=== PATIENT | male | born 1970 | race American Indian/Alaskan Native ===

== ENCOUNTER 2017-12-19 06:39 | Inpatient (IN) | payer OTHER ==
[2017-12-19 07:36] LABS: Basophils % (Auto) 0.4 % (0.0-1.8); Eosinophils % (Auto) 0.3 % (0.0-4.3); Hematocrit 29.1 % (35.5-45.6); Lymphocytes # (Auto) 0.9 K/mm3 (1.2-5.4); Lymphocytes % (Auto) 10.8 % (13.4-35.0); Mean Corpuscular HGB Conc 34 % (32-34); Mean Corpuscular Hemoglobin 31 pg (28-32); Mean Corpuscular Volume 89 fl (84-94); Monocytes # (Auto) 0.7 K/mm3 (0.0-0.8); Monocytes % (Auto) 8.2 % (0.0-7.3); Platelet Count 135 K/mm3 (140-440); Red Blood Count 3.25 M/mm3 (3.65-5.03); Red Cell Distribution Width 14.3 % (13.2-15.2)
[2017-12-19 07:50] LABS: Albumin 3.7 g/dL (3.9-5); Calcium 8.1 mg/dL (8.4-10.2)
--- NOTE | 2017-12-19 09:02 | XRay Report ---
AP CHEST: HISTORY: chest pain AP view of the chest demonstrates a normal mediastinal and cardiac contour with clear lungs and normal bony and soft tissue structures. IMPRESSION: Unremarkable AP chest.
--- NOTE | 2017-12-19 09:03 | Consultation ---
History of Present Illness - Reason for Consult Consult date: 12/19/17 end stage renal disease, accelerated hypertension, other (Peritonitis) - History of Present Illness The patient is a 47 YO AAM with history significant for ESRD on APD, Anemia 2/2 Renal disease, Accelerated hypertension, Secondary hyperparathyroidism, Anxiety and Panic attacks, who is well known to our service, was sent to ER for for further evaluation of abd pain and possible Peritonitis. Patient presented to our office yesterday with 2-3 days h/o severe diffuse abdominal pain, which was squeezing in nature, constant, aggravated by any movements and eating. He vomited once about 2 days ago and couldn't do PD for about 2 days due to pain. Associated symptoms poor PO intake, malaise, weight loss, pain on urination and subjective fever. Today his symptoms are about the same. Past History Past Medical History: anemia, dialysis, ESRD, hypertension Medications and Allergies Allergies Allergy/AdvReac Type Severity Reaction Status Date / Time No Known Allergies Allergy Unverified 12/19/17 07:20 Home Medications Medication Instructions Recorded Confirmed Last Taken Type Clonidine HCl [Catapres] 0.3 mg PO TID 12/19/17 12/19/17 12/19/17 History Cyclobenzaprine [Flexeril 10 MG 1 tab PO BID PRN 12/19/17 12/19/17 12/19/17 History TAB] Doxazosin Mesylate 8 mg PO HS 12/19/17 12/19/17 12/19/17 History Furosemide [Lasix] 1 tab PO DAILY 12/19/17 12/19/17 12/19/17 History Losartan [Cozaar] 100 mg PO QDAY 12/19/17 12/19/17 12/19/17 History Review of Systems Constitutional: weight loss, fever, anorexia, fatigue, weakness, malaise, poor appetite, no weight gain, no chills, no chronic pain Ears, nose, mouth and throat: epistaxis Cardiovascular: chest pain, no orthopnea, no lightheadedness, no shortness of breath Respiratory: no cough, no hemoptysis, no shortness of breath, no dyspnea on exertion, no sleep apnea Gastrointestinal: abdominal pain, nausea, vomiting, constipation, no diarrhea, no hematemesis, no melena Genitourinary Male: no dysuria, no hematuria Rectal: no pain, no bleeding Musculoskeletal: no redness of joints, no hot joints Integumentary: no rash, no redness, no sores, no wounds Neurological: no paralysis, no seizures, no syncope, no change in mentation Psychiatric: anxiety, change in appetite, anxiety attacks, no memory loss, no confusion Hematologic/Lymphatic: no easy bleeding Allergic/Immunologic: no anaphylaxis Exam - Vital Signs Vital signs: Vital Signs Temp Pulse Resp BP Pulse Ox 98.3 F 100 H 16 266/165 99 12/19/17 07:20 12/19/17 07:20 12/19/17 07:20 12/19/17 07:20 12/19/17 07:20 - General Appearance General appearance: well-developed, appears stated age, chronically ill, frail, other (no distress) EENT: ATNC, PERRL, mucous membranes dry, hearing intact, vision intact Neck: Present: neck supple, trachea midline Respiratory: Clear to Ascultation Heart: regular, S1S2, no murmurs Gastrointestinal: Present: normoactive bowel sounds, tenderness, other (PEG tube noted). Absent: distended, masses Integumentary: no rash, warm and dry Neurologic: no focal deficit, alert and oriented x3 Musculoskeletal: Present: other (no edema) Psychiatric: mood/affect appropriate, cooperative Results - Lab Results 12/19/17 07:28 12/19/17 08:41 Most recent lab results Calcium 8.1 mg/dL (8.4-10.2) L 12/19/17 07:28 Assessment and Plan 1. Peritonitis: Symptoms and signs very suggestive of Peritonitis. Peritoneal fluid cell count and culture ordered. Will start on Vancomycin and Ceftriaxone for broad spectrum coverage. Await culture results. 2. ESRD: PD with 1.5% solution 4 times a day, manual exchanges. Monitor lytes. 3. Uncontrolled HTN: Resume home meds. Prn IV Hydralazine. 4. Anemia: Monitor. 5. Anxiety: Prn Xanax.
[2017-12-19] MEDS ORDERED: XANAX PO PRN (09:10)
[2017-12-19 09:13] LABS: Albumin 3.6 g/dL (3.9-5)
[2017-12-19] MEDS ORDERED: ROCEPHIN 1,000 MG in NACL 0.9% 50 ML IV ONE (09:17)
[2017-12-19 09:19] LABS: Calcium 7.6 mg/dL (8.4-10.2)
[2017-12-19 09:38] LABS: Lipase 22 units/L (13-60)
--- NOTE | 2017-12-19 09:40 | History and Physical Report ---
History of Present Illness Date of examination: 12/19/17 Date of admission: 12/19/17 Chief complaint: Abdominal pain poor oral intake and not feeling well for the last 3 days History of present illness: very Pleasant 47-year-old -[place] male patient with significant past medical history of hypertension and anxiety disorder end-stage renal disease on peritoneal dialysis, anemia secondary to end-stage renal disease, presented to the emergency room with abdominal pain off to discharge patient., Patient has not been feeling well, denies any fever, evaluated by drone operator Patient is being admitted for further management of peritonitis. Patient denies nausea vomiting Denies headache dizziness Denies chest pain or shortness of breath Past History Past Medical History: ESRD, hypertension Past Surgical History: Other (peritoneal dialysis) Social history: lives with family, full code. denies: smoking, alcohol abuse Family history: hypertension Medications and Allergies Allergies Allergy/AdvReac Type Severity Reaction Status Date / Time No Known Allergies Allergy Unverified 12/19/17 07:20 Home Medications Medication Instructions Recorded Confirmed Last Taken Type Clonidine HCl [Catapres] 0.3 mg PO TID 12/19/17 12/19/17 12/19/17 History Cyclobenzaprine [Flexeril 10 MG 1 tab PO BID PRN 12/19/17 12/19/17 12/19/17 History TAB] Doxazosin Mesylate 8 mg PO HS 12/19/17 12/19/17 12/19/17 History Furosemide [Lasix] 1 tab PO DAILY 12/19/17 12/19/17 12/19/17 History Losartan [Cozaar] 100 mg PO QDAY 12/19/17 12/19/17 12/19/17 History Active Meds: Active Medications Alprazolam (Xanax) 0.25 mg PO TID PRN PRN Reason: Anxiety Clonidine HCl (Catapres) 0.3 mg PO TID FERNANDO Doxazosin Mesylate (Cardura) 8 mg PO HS [facility] Ceftriaxone Sodium 1,000 mg/ (Sodium Chloride) 50 mls @ 100 mls/hr IV ONCE ONE PRN Reason: Protocol Stop: 12/19/17 09:46 Losartan Potassium (Cozaar) 100 mg PO DAILY FERNANDO Minoxidil (Loniten) 5 mg PO DAILY FERNANDO Oxycodone/Acetaminophen (Percocet 5/325) 2 tab PO Q6H PRN PRN Reason: Pain, Moderate (4-6) Peritoneal Dialysis Solution (Dianeal Low Calcium W/1.5% Dextrose) 2,000 ml IP 4XD FERNANDO Vancomycin HCl (Vancomycin Pharmacy To Dose) 1 each IV PKCONSULT FERNANDO PRN Reason: Protocol Review of Systems Constitutional: anorexia, fatigue, no weight loss, no weight gain Ears, nose, mouth and throat: no nasal congestion, no nasal discharge Cardiovascular: lightheadedness, no chest pain, no shortness of breath Respiratory: no cough with sputum, no hemoptysis Gastrointestinal: abdominal pain, nausea, no vomiting Genitourinary Male: no flank pain Musculoskeletal: no myalgias, no arthritis Integumentary: no rash, no lesions Neurological: no paralysis, no weakness Psychiatric: no anxiety, no depression Endocrine: no cold intolerance, no heat intolerance, no polydipsia, no polyuria Hematologic/Lymphatic: no easy bruising, no easy bleeding Allergic/Immunologic: no urticaria, no allergic rhinitis Exam - Constitutional Vitals: Temp Pulse Resp BP Pulse Ox 98.3 F 89 24 235/157 100 12/19/17 07:20 12/19/17 08:16 12/19/17 08:16 12/19/17 08:16 12/19/17 08:16 General appearance: Present: no acute distress, well-nourished - EENT Eyes: Present: PERRL, EOM intact - Neck Neck: Present: supple, normal ROM - Respiratory Respiratory effort: normal Respiratory: negative: rales, rhonchi, wheezing - Cardiovascular Rhythm: regular Heart Sounds: Present: S1 & S2 - Extremities Extremities: no ischemia, No edema - Abdominal General gastrointestinal: Present: soft, tender (no guarding no rigidity), normal bowel sounds - Integumentary Integumentary: Present: clear, warm - Musculoskeletal Musculoskeletal: strength equal bilaterally - Psychiatric Psychiatric: appropriate mood/affect, cooperative - Neurologic Neurologic: CNII-XII intact, moves all extremities Results - Labs CBC & Chem 7: 12/19/17 07:28 12/19/17 08:41 Labs: Abnormal lab results 12/19/17 12/19/17 12/19/17 Range/Units 07:28 07:28 08:41 RBC 3.25 L (3.65-5.03) M/mm3 Hgb 10.0 L (11.8-15.2) gm/dl Hct 29.1 L (35.5-45.6) % Plt Count 135 L (140-440) K/mm3 Lymph % (Auto) 10.8 L (13.4-35.0) % [place] % (Auto) 8.2 H (0.0-7.3) % Lymph # 0.9 L (1.2-5.4) K/mm3 Seg Neutrophils % 80.3 H (40.0-70.0) % Chloride 96.4 L 96.3 L (98-107) mmol/L Carbon Dioxide 21 L 21 L (22-30) mmol/L BUN 101 H 99 H (9-20) mg/dL Creatinine 12.0 H 12.0 H (0.8-1.5) mg/dL Glucose 152 H 152 H (75-100) mg/dL Calcium 8.1 L 7.6 L (8.4-10.2) mg/dL Total Protein 5.8 L (6.3-8.2) g/dL Albumin 3.7 L 3.6 L (3.9-5) g/dL Assessment and Plan --Possible peritonitis; Empiric antibiotics, IV fluids, supportive care PD fluid analysis, cultures. ID consult if needed --End-stage disease; on peritoneal dialysis Nephrology following, closely monitored --Hypertension; moderate control, continue current antihypertensives and when necessary medications --DVT prophylaxis; heparin renal dose Closely monitor the patient just management as needed
[2017-12-19] MEDS ORDERED: FLEXERIL PO PRN (09:41)
[2017-12-19] MEDS ORDERED: APRESOLINE IV ONE (09:48)
[2017-12-19] MEDS ORDERED: VANCOMYCIN PHARMACY TO DOSE IV SCH (10:00)
[2017-12-19] MEDS ORDERED: NON-FORMULARY (Losartan [Cozaar] 100 MG) PO SCH (10:00)
[2017-12-19] MEDS ORDERED: CATAPRES PO SCH (10:00)
[2017-12-19] MEDS ORDERED: ZOFRAN IV ONE (10:03)
[2017-12-19] MEDS ORDERED: MORPHINE IV ONE (10:03)
[2017-12-19] MEDS: DIANEAL LOW CALCIUM W/1.5% DEXTROSE IP SCH ×4 (10:17→22:00)
[2017-12-19] MEDS: CATAPRES PO SCH ×3 (10:19→20:51)
[2017-12-19] MEDS: COZAAR PO SCH (10:20)
[2017-12-19] MEDS ORDERED: cefTRIAXone 1 GM in NACL 0.9% 20 ML IV ONE (10:30)
[2017-12-19 10:32] LABS: Bilirubin,Urine NEG (Negative); Blood,Urine SM (Negative); Color,Urine Yellow (Yellow)
--- NOTE | 2017-12-19 11:02 | Cat Scan Report ---
CT ABDOMEN PELVIS WITHOUT CONTRAST: HISTORY: Peritonitis, abdominal pain. COMPARISON: none. TECHNIQUE: Helical CT in 1.25mm intervals without IV contrast. Sagittal and coronal reconstructions. FINDINGS: Lung bases: The visualized lung bases are adequately aerated. There is borderline to mild cardiomegaly. Liver: Normal. Biliary system: There appears to be sludge or small stones within the gallbladder. There is no abnormal gallbladder distention but mild gallbladder wall edema is identified. The common bile duct and intrahepatic ducts are normal caliber. Pancreas: Normal. Spleen: Normal. Kidneys/ureters/bladder: The kidneys are mildly atrophic. No evidence for focal renal lesion, nephrolithiasis or hydronephrosis. The ureters and bladder are unremarkable. Adrenal glands: Normal. Aorta: Normal. Intestines: Within normal limits given no oral contrast was administered. Mild fecal retention is noted. Appendix: Not confidently identified, correlate with surgical history. Pelvic viscera: Normal. Ascites: A peritoneal dialysis catheter terminates in the superior pelvis. Small ascites is noted. Adenopathy: None identified. Musculoskeletal: Normal. IMPRESSION: Borderline to mild cardiomegaly. Small ascites with peritoneal dialysis catheter in place. Cholelithiasis but no convincing findings of acute cholecystitis. Mild fecal retention. No acute inflammatory process is appreciated on noncontrast CT.
--- NOTE | 2017-12-19 11:31 | Emergency Department Report ---
ED Abdominal Pain HPI - General Chief Complaint: Abdominal Pain Stated Complaint: ABD PAIN Time Seen by Provider: 12/19/17 08:22 Source: patient Mode of arrival: Ambulatory Limitations: No Limitations - History of Present Illness MD Complaint: abdominal pain -: days(s) (2) Location: diffuse, LLQ, RLQ Radiation: back Severity scale (0 -10): 8 Quality: aching, fullness, sharp Consistency: constant Improves With: nothing Worsens With: movement Context: other (Seen by feather baler Dr. Thakur who referred pt to ED for admission, ESRD on PD) - Related Data Home Medications Medication Instructions Recorded Confirmed Last Taken Clonidine HCl [Catapres] 0.3 mg PO TID 12/19/17 12/19/17 12/19/17 Cyclobenzaprine [Flexeril 10 MG 1 tab PO BID PRN 12/19/17 12/19/17 12/19/17 TAB] Doxazosin Mesylate 8 mg PO HS 12/19/17 12/19/17 12/19/17 Furosemide [Lasix] 1 tab PO DAILY 12/19/17 12/19/17 12/19/17 Losartan [Cozaar] 100 mg PO QDAY 12/19/17 12/19/17 12/19/17 Allergies Allergy/AdvReac Type Severity Reaction Status Date / Time No Known Allergies Allergy Unverified 12/19/17 07:20 ED Review of Systems ROS: Stated complaint: ABD PAIN Other details as noted in HPI ED Past Medical Hx - Past Medical History Previous Medical History?: Yes Hx Hypertension: Yes Hx Renal Disease: Yes (PD) - Surgical History Past Surgical History?: Yes Additional Surgical History: PD catheter placement - Social History Smoking Status: Never Smoker - Medications Home Medications: Home Medications Medication Instructions Recorded Confirmed Last Taken Type Clonidine HCl [Catapres] 0.3 mg PO TID 12/19/17 12/19/17 12/19/17 History Cyclobenzaprine [Flexeril 10 MG 1 tab PO BID PRN 12/19/17 12/19/17 12/19/17 History TAB] Doxazosin Mesylate 8 mg PO HS 12/19/17 12/19/17 12/19/17 History Furosemide [Lasix] 1 tab PO DAILY 12/19/17 12/19/17 12/19/17 History Losartan [Cozaar] 100 mg PO QDAY 12/19/17 12/19/17 12/19/17 History ED Physical Exam - General Limitations: No Limitations General appearance: alert, in no apparent distress, other (nontoxic alert conversant) - Head Head exam: Present: atraumatic, normocephalic - Eye Eye exam: Present: normal appearance - ENT ENT exam: Present: mucous membranes dry, other (no lesions) - Neck Neck exam: Present: normal inspection. Absent: meningismus - Respiratory Respiratory exam: Present: normal lung sounds bilaterally. Absent: respiratory distress, wheezes, rales, rhonchi - Cardiovascular Cardiovascular Exam: Present: regular rate, normal rhythm, normal heart sounds. Absent: bradycardia, tachycardia, systolic murmur, diastolic murmur, rubs, gallop - GI/Abdominal GI/Abdominal exam: Present: soft, distended, tenderness, guarding, rebound ( exquisite tenderness LLQ RLQ), normal bowel sounds - Rectal Rectal exam: Present: deferred - Extremities Exam Extremities exam: Present: normal inspection - Back Exam Back exam: Present: normal inspection - Neurological Exam Neurological exam: Present: alert, oriented X3 - Psychiatric Psychiatric exam: Present: normal affect, normal mood - Skin Skin exam: Present: warm, dry, intact, normal color. Absent: rash ED Course Vital Signs 12/19/17 12/19/17 12/19/17 07:20 07:41 07:46 Temperature 98.3 F Pulse Rate 100 H 98 H 88 Respiratory 16 17 21 Rate Blood Pressure 266/165 258/167 O2 Sat by Pulse 99 100 Oximetry 12/19/17 12/19/17 12/19/17 08:00 08:07 08:16 Temperature Pulse Rate 85 89 Respiratory 20 18 24 Rate Blood Pressure 235/157 235/157 O2 Sat by Pulse 100 97 100 Oximetry 12/19/17 12/19/17 12/19/17 08:30 08:46 09:00 Temperature Pulse Rate 87 85 81 Respiratory 17 22 19 Rate Blood Pressure 235/157 235/157 244/156 O2 Sat by Pulse 100 99 99 Oximetry 12/19/17 12/19/17 12/19/17 09:16 09:30 09:46 Temperature Pulse Rate 79 82 82 Respiratory 14 20 22 Rate Blood Pressure 244/156 244/156 244/156 O2 Sat by Pulse 100 100 100 Oximetry 12/19/17 12/19/17 12/19/17 10:00 10:16 10:19 Temperature Pulse Rate 84 91 H 90 Respiratory 21 26 H Rate Blood Pressure 235/156 219/142 219/142 O2 Sat by Pulse 98 100 Oximetry 12/19/17 12/19/17 10:20 11:04 Temperature Pulse Rate 90 Respiratory 20 Rate Blood Pressure 219/142 219/142 O2 Sat by Pulse 100 Oximetry ED Medical Decision Making - Lab Data Result diagrams: 12/19/17 07:28 12/19/17 08:41 Abnormal Lab Results 12/19/17 12/19/17 12/19/17 07:28 07:28 08:41 WBC 8.4 RBC 3.25 L Hgb 10.0 L Hct 29.1 L MCV 89 MCH 31 MCHC 34 RDW 14.3 Plt Count 135 L Lymph % (Auto) 10.8 L [place] % (Auto) 8.2 H Eos % (Auto) 0.3 Baso % (Auto) 0.4 Lymph # 0.9 L [place] # 0.7 Eos # 0.0 Baso # 0.0 Seg Neutrophils % 80.3 H Seg Neutrophils # 6.7 Sodium 138 138 Potassium 4.6 4.7 Chloride 96.4 L 96.3 L Carbon Dioxide 21 L 21 L Anion Gap 25 25 BUN 101 H 99 H Creatinine 12.0 H 12.0 H Estimated GFR 6 6 BUN/Creatinine Ratio 8 8 Glucose 152 H 152 H Lactic Acid Calcium 8.1 L 7.6 L Total Bilirubin 0.50 0.50 AST 16 15 ALT 21 20 Alkaline Phosphatase 59 57 Total Protein 6.7 5.8 L Albumin 3.7 L 3.6 L Albumin/Globulin Ratio 1.2 1.6 Amylase Lipase Urine Color Urine Turbidity Urine pH Ur Specific [place] Urine Protein Urine Glucose (UA) Urine Ketones Urine Blood Urine Nitrite Urine Bilirubin Urine Urobilinogen Ur Leukocyte Esterase Urine WBC (Auto) Urine RBC (Auto) 12/19/17 12/19/17 12/19/17 08:41 08:41 09:28 WBC RBC Hgb Hct MCV MCH MCHC RDW Plt Count Lymph % (Auto) [place] % (Auto) Eos % (Auto) Baso % (Auto) Lymph # [place] # Eos # Baso # Seg Neutrophils % Seg Neutrophils # Sodium Potassium Chloride Carbon Dioxide Anion Gap BUN Creatinine Estimated GFR BUN/Creatinine Ratio Glucose Lactic Acid 1.10 Calcium Total Bilirubin AST ALT Alkaline Phosphatase Total Protein Albumin Albumin/Globulin Ratio Amylase 97 Lipase 22 Urine Color Yellow Urine Turbidity Clear Urine pH 6.0 Ur Specific [place] 1.013 Urine Protein 100 mg/dl Urine Glucose (UA) 50 Urine Ketones Neg Urine Blood Sm Urine Nitrite Neg Urine Bilirubin Neg Urine Urobilinogen 2.0 Ur Leukocyte Esterase Neg Urine WBC (Auto) 1.0 Urine RBC (Auto) 1.0 Laboratory Results - last 24 hr 12/19/17 12/19/17 12/19/17 07:28 07:28 08:41 WBC 8.4 RBC 3.25 L Hgb 10.0 L Hct 29.1 L MCV 89 MCH 31 MCHC 34 RDW 14.3 Plt Count 135 L Lymph % (Auto) 10.8 L [place] % (Auto) 8.2 H Eos % (Auto) 0.3 Baso % (Auto) 0.4 Lymph # 0.9 L [place] # 0.7 Eos # 0.0 Baso # 0.0 Seg Neutrophils % 80.3 H Seg Neutrophils # 6.7 Sodium 138 138 Potassium 4.6 4.7 Chloride 96.4 L 96.3 L Carbon Dioxide 21 L 21 L Anion Gap 25 25 BUN 101 H 99 H Creatinine 12.0 H 12.0 H Estimated GFR 6 6 BUN/Creatinine Ratio 8 8 Glucose 152 H 152 H Lactic Acid Calcium 8.1 L 7.6 L Total Bilirubin 0.50 0.50 AST 16 15 ALT 21 20 Alkaline Phosphatase 59 57 Total Protein 6.7 5.8 L Albumin 3.7 L 3.6 L Albumin/Globulin Ratio 1.2 1.6 Amylase Lipase Urine Color Urine Turbidity Urine pH Ur Specific [place] Urine Protein Urine Glucose (UA) Urine Ketones Urine Blood Urine Nitrite Urine Bilirubin Urine Urobilinogen Ur Leukocyte Esterase Urine WBC (Auto) Urine RBC (Auto) 12/19/17 12/19/17 12/19/17 08:41 08:41 09:28 WBC RBC Hgb Hct MCV MCH MCHC RDW Plt Count Lymph % (Auto) [place] % (Auto) Eos % (Auto) Baso % (Auto) Lymph # [place] # Eos # Baso # Seg Neutrophils % Seg Neutrophils # Sodium Potassium Chloride Carbon Dioxide Anion Gap BUN Creatinine Estimated GFR BUN/Creatinine Ratio Glucose Lactic Acid 1.10 Calcium Total Bilirubin AST ALT Alkaline Phosphatase Total Protein Albumin Albumin/Globulin Ratio Amylase 97 Lipase 22 Urine Color Yellow Urine Turbidity Clear Urine pH 6.0 Ur Specific [place] 1.013 Urine Protein 100 mg/dl Urine Glucose (UA) 50 Urine Ketones Neg Urine Blood Sm Urine Nitrite Neg Urine Bilirubin Neg Urine Urobilinogen 2.0 Ur Leukocyte Esterase Neg Urine WBC (Auto) 1.0 Urine RBC (Auto) 1.0 Vital Signs - 24 hr 12/19/17 12/19/17 12/19/17 07:20 07:41 07:46 Temperature 98.3 F Pulse Rate 100 H 98 H 88 Respiratory 16 17 21 Rate Blood Pressure 266/165 258/167 O2 Sat by Pulse 99 100 Oximetry 12/19/17 12/19/17 12/19/17 08:00 08:07 08:16 Temperature Pulse Rate 85 89 Respiratory 20 18 24 Rate Blood Pressure 235/157 235/157 O2 Sat by Pulse 100 97 100 Oximetry 12/19/17 12/19/17 12/19/17 08:30 08:46 09:00 Temperature Pulse Rate 87 85 81 Respiratory 17 22 19 Rate Blood Pressure 235/157 235/157 244/156 O2 Sat by Pulse 100 99 99 Oximetry 12/19/17 12/19/17 12/19/17 09:16 09:30 09:46 Temperature Pulse Rate 79 82 82 Respiratory 14 20 22 Rate Blood Pressure 244/156 244/156 244/156 O2 Sat by Pulse 100 100 100 Oximetry 12/19/17 12/19/17 12/19/17 10:00 10:16 10:19 Temperature Pulse Rate 84 91 H 90 Respiratory 21 26 H Rate Blood Pressure 235/156 219/142 219/142 O2 Sat by Pulse 98 100 Oximetry 12/19/17 12/19/17 10:20 11:04 Temperature Pulse Rate 90 Respiratory 20 Rate Blood Pressure 219/142 219/142 O2 Sat by Pulse 100 Oximetry - EKG Data -: EKG Interpreted by Me - Medical Decision Making Mr. Casas is admitted to hospitalist service with feather baler consult by Dr. Thakur for peritonitis related to peritoneal dialysis, CT abd/pelvic ordered to rule out alternative etiology for peritonitis IV antibiotics were ordered by Dr. Thakur. I truly appreciate the assistance of hospitalist Dr. Romeo who managed Mr. Casas's severe hypertension with his home medications. Critical care attestation.: If time is entered above; I have spent that time in minutes in the direct care of this critically ill patient, excluding procedure time. ED Disposition Clinical Impression: Peritonitis associated with peritoneal dialysis Disposition: OP ADMIT IP TO THIS HOSP Is pt being admited?: Yes Does the pt Need Aspirin: No Condition: Fair
[2017-12-19] MEDS ORDERED: ASPIRIN PO ONE (11:42)
[2017-12-19] MEDS ORDERED: VANCOMYCIN 1,500 MG in NACL 0.9% 500 ML 500 ML IV ONE (13:00)
[2017-12-19] MEDS: DILAUDID IV PRN (13:41)
[2017-12-19] MEDS ORDERED: NON-FORMULARY (Clonidine Hcl [Catapres] 0.3 MG) PO SCH (14:00)
[2017-12-19] MEDS ORDERED: MIRALAX 3350 PO PRN (14:49)
[2017-12-19] MEDS: LONITEN PO SCH (16:07)
[2017-12-19] MEDS: PERCOCET 5/325 PO PRN ×2 (16:08→23:03)
[2017-12-19] MEDS: APRESOLINE PO SCH ×2 (16:09→22:59)
[2017-12-19] MEDS: APRESOLINE IV PRN (17:30)
[2017-12-19] MEDS ORDERED: CARDENE 50 MG in NACL 0.9% 250ML 230 ML IV SCH (20:00)
[2017-12-19] MEDS ORDERED: NON-FORMULARY (Doxazosin Mesylate [Doxazosin Mesylate] 8 MG) PO SCH (22:00)
[2017-12-19] MEDS: CARDURA PO SCH (23:01)
[2017-12-19] MEDS: HEPARIN SUB-Q SCH (23:02)
[2017-12-20] MEDS: XANAX PO PRN (00:29)
[2017-12-20] MEDS: DILAUDID IV PRN (00:55)
[2017-12-20] MEDS ORDERED: NORMODYNE 200 MG in D5W 160 ML IV ONE (02:00)
[2017-12-20] MEDS ORDERED: NORMODYNE IV ONE (03:55)
[2017-12-20] MEDS: NORMODYNE 200 MG in D5W 160 ML IV SCH ×8 (04:04→23:24)
[2017-12-20 04:54] LABS: Basophils % (Auto) 0.2 % (0.0-1.8); Eosinophils % (Auto) 0.2 % (0.0-4.3); Hematocrit 28.6 % (35.5-45.6); Hemoglobin 9.9 gm/dl (11.8-15.2); Lymphocytes # (Auto) 0.6 K/mm3 (1.2-5.4); Lymphocytes % (Auto) 7.4 % (13.4-35.0); Mean Corpuscular HGB Conc 35 % (32-34); Mean Corpuscular Hemoglobin 31 pg (28-32); Mean Corpuscular Volume 89 fl (84-94); Monocytes # (Auto) 0.5 K/mm3 (0.0-0.8); Monocytes % (Auto) 6.2 % (0.0-7.3); Platelet Count 179 K/mm3 (140-440)
[2017-12-20 05:12] LABS: Calcium 7.6 mg/dL (8.4-10.2)
[2017-12-20 05:18] LABS: Total Cells Counted 100 /mm3
[2017-12-20] MEDS: PERCOCET 5/325 PO PRN (08:33)
[2017-12-20] MEDS: CATAPRES PO SCH ×3 (08:34→19:49)
--- NOTE | 2017-12-20 09:26 | Progress Note ---
Assessment and Plan 1. Peritonitis: PD effulent is cloudy. PD fluid WBC is high. Culture is pending. Continue Vancomycin and Ceftriaxone. Symptoms are improving. 2. ESRD: PD with 1.5% solution 4 times a day, manual exchanges. Monitor lytes. 3. Uncontrolled HTN: IV antihypertensive meds were stopped. I saw the patient twice today. Earlier when the patient was sleeping his BP was around 130/85. Later when he was awake his BP was around 180/90. Highly likely that the high anxiety levels is contributing to high BP. Patient agreed to see Psychiatrist. Started on Amlodipine. Will stop Hydralazine. 4. Anemia: Monitor. 5. Anxiety: Prn Xanax. Psychiatry consult. Subjective Date of service: 12/20/17 Interval history: Patient is doing ok. He was transferred to ICU for Nicardipine drip. Objective - Vital Signs Vital signs: Vital Signs - 12hr 12/19/17 12/19/17 12/19/17 21:43 21:50 22:00 Temperature Pulse Rate 139 H 127 H 126 H Respiratory 14 11 L 19 Rate Blood Pressure 263/156 O2 Sat by Pulse 100 100 Oximetry 12/19/17 12/19/17 12/19/17 22:10 22:20 22:30 Temperature Pulse Rate 129 H 124 H 120 H Respiratory 18 23 18 Rate Blood Pressure 263/156 267/150 267/150 O2 Sat by Pulse 100 100 100 Oximetry 12/19/17 12/19/17 12/19/17 22:40 22:50 22:59 Temperature Pulse Rate 116 H 130 H 132 H Respiratory 13 19 Rate Blood Pressure 246/154 228/154 228/154 O2 Sat by Pulse 100 100 Oximetry 12/19/17 12/19/17 12/19/17 23:00 23:01 23:03 Temperature Pulse Rate 135 H 127 H Respiratory 22 21 Rate Blood Pressure 228/154 228/154 O2 Sat by Pulse 100 Oximetry 12/19/17 12/19/17 12/19/17 23:10 23:20 23:30 Temperature Pulse Rate 128 H 122 H 129 H Respiratory 26 H 18 19 Rate Blood Pressure 253/151 247/159 247/159 O2 Sat by Pulse 100 100 100 Oximetry 12/19/17 12/19/17 12/20/17 23:40 23:50 00:00 Temperature 98.9 F Pulse Rate 127 H 138 H 149 H Respiratory 19 20 19 Rate Blood Pressure 236/161 236/161 263/171 O2 Sat by Pulse 100 100 100 Oximetry 12/20/17 12/20/17 12/20/17 00:03 00:10 00:20 Temperature Pulse Rate 146 H 145 H Respiratory 19 28 H 16 Rate Blood Pressure 263/171 245/157 O2 Sat by Pulse 100 100 Oximetry 12/20/17 12/20/17 12/20/17 00:30 00:40 00:50 Temperature Pulse Rate 166 H 167 H 167 H Respiratory 15 14 19 Rate Blood Pressure 245/157 245/157 254/116 O2 Sat by Pulse 100 99 100 Oximetry 12/20/17 12/20/17 12/20/17 01:00 01:10 01:20 Temperature Pulse Rate 161 H 159 H 161 H Respiratory 17 21 20 Rate Blood Pressure 245/157 250/111 O2 Sat by Pulse 100 100 100 Oximetry 12/20/17 12/20/17 12/20/17 01:25 01:30 01:40 Temperature Pulse Rate 154 H 144 H Respiratory 15 22 16 Rate Blood Pressure 254/116 262/124 O2 Sat by Pulse 100 100 Oximetry 12/20/17 12/20/17 12/20/17 01:50 02:00 02:10 Temperature Pulse Rate 146 H 152 H 142 H Respiratory 16 24 19 Rate Blood Pressure 257/130 257/130 246/129 O2 Sat by Pulse 100 100 100 Oximetry 12/20/17 12/20/17 12/20/17 02:20 02:30 02:40 Temperature Pulse Rate 112 H 102 H 99 H Respiratory 17 14 13 Rate Blood Pressure 236/123 230/113 230/113 O2 Sat by Pulse 100 100 100 Oximetry 12/20/17 12/20/17 12/20/17 02:50 03:00 03:10 Temperature Pulse Rate 96 H 95 H 94 H Respiratory 11 L 12 13 Rate Blood Pressure 179/81 183/97 183/97 O2 Sat by Pulse 100 100 100 Oximetry 12/20/17 12/20/17 12/20/17 03:20 03:30 03:40 Temperature Pulse Rate 90 90 91 H Respiratory 19 14 14 Rate Blood Pressure 173/98 172/108 172/108 O2 Sat by Pulse 100 100 100 Oximetry 12/20/17 12/20/17 12/20/17 03:50 04:00 04:04 Temperature 97.5 F L Pulse Rate 93 H 94 H 91 H Respiratory 16 12 Rate Blood Pressure 173/113 169/114 169/114 O2 Sat by Pulse 100 100 Oximetry 12/20/17 12/20/17 12/20/17 04:30 05:00 05:30 Temperature Pulse Rate 89 92 H 94 H Respiratory 19 14 19 Rate Blood Pressure 150/92 160/100 165/103 O2 Sat by Pulse 100 100 100 Oximetry 12/20/17 12/20/17 12/20/17 06:00 06:30 07:00 Temperature Pulse Rate 91 H 89 87 Respiratory 22 21 12 Rate Blood Pressure 153/95 142/94 141/83 O2 Sat by Pulse 100 100 100 Oximetry 12/20/17 12/20/17 12/20/17 07:30 08:00 08:34 Temperature Pulse Rate 88 90 88 Respiratory 16 17 Rate Blood Pressure 145/59 132/99 139/91 O2 Sat by Pulse 100 100 Oximetry - General Appearance General appearance: well-developed, appears stated age, other (thin built, no distress) EENT: ATNC, PERRL, hearing intact, vision intact Neck: supple Respiratory: Present: Clear to Ascultation Cardiology: regular, S1S2, no murmurs Gastrointestinal: normoactive bowel sounds, tenderness, no distended, other (PD catheter noted) Integumentary: no rash, warm and dry Neurologic: no focal deficit, no asterixis, alert and oriented x3 Musculoskeletal: other (no edema) Psychiatric: mood/affect appropriate, cooperative - Lab 12/20/17 03:58 12/20/17 03:58 Most recent lab results Calcium 7.6 mg/dL (8.4-10.2) L 12/20/17 03:58
--- NOTE | 2017-12-20 10:58 | Progress Note ---
Assessment and Plan Assessment and plan: --Hypertensive emergency; blood pressures are very high Labetalol drip per protocol, titrate systolic blood pressures to be less than 140 Continue multiple antihypertensive medications, nephrology and pulmonary critical following --End-stage renal disease; on peritoneal dialysis Dialysis prescription reviewed, nephrology following --Possible peritonitis; follow paternal fluid analysis and cultures, continue antibiotics Vancomycin and Rocephin --Anemia of end-stage renal disease closely monitor H&H Transfuse as needed, Procrit; --DVT prophylaxis; heparin, renal dose Closely monitor the patient and adjust management as needed Plan of care is reviewed with the patient and his nurse Critical care time 31 minutes History Interval history: Recent seen and evaluated in ICU this morning medical records reviewed Last night events noted, patient had very high blood pressures Transfer to ICU and started on labetalol drip This morning patient's blood pressures are reasonable level, discussed with yard general car supervisor Okay to transfer to floor However patient's blood pressures are very high with systolic more than 200s Transferred his held And started on labetalol drip. Patient feels slightly better, denies chest pain shortness of breath Vital signs reviewed Hospitalist Physical - Constitutional Vitals: Temp Pulse Resp BP Pulse Ox 97.5 F L 88 17 139/91 100 12/20/17 04:00 12/20/17 08:34 12/20/17 08:00 12/20/17 08:34 12/20/17 08:00 General appearance: Present: no acute distress, well-nourished - EENT Eyes: Present: PERRL, EOM intact - Neck Neck: Present: supple, normal ROM - Respiratory Respiratory effort: normal Respiratory: bilateral: diminished, rales, negative: rhonchi, wheezing - Cardiovascular Rhythm: regular Heart Sounds: Present: S1 & S2 - Extremities Extremities: no ischemia, No edema - Abdominal General gastrointestinal: soft, tender (no guarding no rigidity), non-distended , normal bowel sounds - Integumentary Integumentary: Present: clear, warm - Psychiatric Psychiatric: appropriate mood/affect, cooperative - Neurologic Neurologic: CNII-XII intact, moves all extremities Results - Labs CBC & Chem 7: 12/20/17 03:58 12/20/17 03:58 Labs: Laboratory Last Values WBC 8.2 K/mm3 (4.5-11.0) 12/20/17 03:58 RBC 3.20 M/mm3 (3.65-5.03) L 12/20/17 03:58 Hgb 9.9 gm/dl (11.8-15.2) L 12/20/17 03:58 Hct 28.6 % (35.5-45.6) L 12/20/17 03:58 MCV 89 fl (84-94) 12/20/17 03:58 MCH 31 pg (28-32) 12/20/17 03:58 MCHC 35 % (32-34) H 12/20/17 03:58 RDW 14.0 % (13.2-15.2) 12/20/17 03:58 Plt Count 179 K/mm3 (140-440) 12/20/17 03:58 Lymph % (Auto) 7.4 % (13.4-35.0) L 12/20/17 03:58 Woodruff % (Auto) 6.2 % (0.0-7.3) 12/20/17 03:58 Eos % (Auto) 0.2 % (0.0-4.3) 12/20/17 03:58 Baso % (Auto) 0.2 % (0.0-1.8) 12/20/17 03:58 Lymph # 0.6 K/mm3 (1.2-5.4) L 12/20/17 03:58 Woodruff # 0.5 K/mm3 (0.0-0.8) 12/20/17 03:58 Eos # 0.0 K/mm3 (0.0-0.4) 12/20/17 03:58 Baso # 0.0 K/mm3 (0.0-0.1) 12/20/17 03:58 Seg Neutrophils % 86.0 % (40.0-70.0) H 12/20/17 03:58 Seg Neutrophils # 7.1 K/mm3 (1.8-7.7) 12/20/17 03:58 Sodium 136 mmol/L (137-145) L 12/20/17 03:58 Potassium 4.2 mmol/L (3.6-5.0) 12/20/17 03:58 Chloride 92.1 mmol/L (98-107) L 12/20/17 03:58 Carbon Dioxide 25 mmol/L (22-30) 12/20/17 03:58 Anion Gap 23 mmol/L 12/20/17 03:58 BUN 96 mg/dL (9-20) H 12/20/17 03:58 Creatinine 11.8 mg/dL (0.8-1.5) H 12/20/17 03:58 Estimated GFR 6 ml/min 12/20/17 03:58 BUN/Creatinine Ratio 8 % 12/20/17 03:58 Glucose 174 mg/dL (75-100) H 12/20/17 03:58 POC Glucose 138 (70-105) H 12/19/17 23:42 Lactic Acid 1.20 mmol/L (0.7-2.0) 12/19/17 13:10 Calcium 7.6 mg/dL (8.4-10.2) L 12/20/17 03:58 Total Bilirubin 0.50 mg/dL (0.1-1.2) 12/19/17 08:41 AST 15 units/L (5-40) 12/19/17 08:41 ALT 20 units/L (7-56) 12/19/17 08:41 Alkaline Phosphatase 57 units/L (35-129) 12/19/17 08:41 Total Protein 5.8 g/dL (6.3-8.2) L 12/19/17 08:41 Albumin 3.6 g/dL (3.9-5) L 12/19/17 08:41 Albumin/Globulin Ratio 1.6 % 12/19/17 08:41 Amylase 97 units/L (27-131) 12/19/17 08:41 Lipase 22 units/L (13-60) 12/19/17 08:41 Urine Color Yellow (Yellow) 12/19/17 09:28 Urine Turbidity Clear (Clear) 12/19/17 09:28 Urine pH 6.0 (5.0-7.0) 12/19/17 09:28 Ur Specific [place] 1.013 (1.003-1.030) 12/19/17 09:28 Urine Protein 100 mg/dl mg/dL (Negative) 12/19/17 09:28 Urine Glucose (UA) 50 mg/dL (Negative) 12/19/17 09:28 Urine Ketones Neg mg/dL (Negative) 12/19/17 09:28 Urine Blood Sm (Negative) 12/19/17 09:28 Urine Nitrite Neg (Negative) 12/19/17 09:28 Urine Bilirubin Neg (Negative) 12/19/17 09:28 Urine Urobilinogen 2.0 mg/dL (<2.0) 12/19/17 09:28 Ur Leukocyte Esterase Neg (Negative) 12/19/17 09:28 Urine WBC (Auto) 1.0 /HPF (0.0-6.0) 12/19/17 09: Urine RBC (Auto) 1.0 /HPF (0.0-6.0) 12/19/17 09:28 Fluid Type Peritoneal 12/19/17 Unknown Fluid Color Yellow 12/19/17 Unknown Fluid Appearance Cloudy 12/19/17 Unknown Fluid WBC 34006 /mm3 12/19/17 Unknown Fluid RBC 450 /mm3 12/19/17 Unknown Fluid Seg Neutrophils 74.0 % 12/19/17 Unknown Fluid Lymphocytes 20.0 % 12/19/17 Unknown Fluid Reactive Lymphs 0 % 12/19/17 Unknown Fluid Monocytes 2.0 % 12/19/17 Unknown Fluid Eosinophils 4.0 % 12/19/17 Unknown Fluid Basophils 0 % 12/19/17 Unknown
[2017-12-20] MEDS: NORVASC PO SCH (11:37)
[2017-12-20] MEDS: COZAAR PO SCH (11:38)
[2017-12-20] MEDS: HEPARIN SUB-Q SCH ×2 (11:38→22:08)
[2017-12-20] MEDS ORDERED: CEPHULAC PO NR (12:00)
[2017-12-20] MEDS: cefTRIAXone 1 GM in NACL 0.9% 20 ML IV SCH (12:13)
[2017-12-20] MEDS: LONITEN PO SCH (12:14)
[2017-12-20] MEDS: DIANEAL LOW CALCIUM W/1.5% DEXTROSE IP SCH ×3 (12:16→18:19)
--- NOTE | 2017-12-20 13:22 | Consultation ---
History of Present Illness Consult date: 12/20/17 Requesting physician: FLORENCIA ROBERTS Reason for consult: other (Hypertensive Emergency) History of present illness: PULMONARY/CCM CONSULT NOTE (Full dictation # [id number]) Please see dictated notes for full details Past History Past Medical History: ESRD, hypertension Past Surgical History: Other (peritoneal dialysis) Social history: lives with family, full code. denies: smoking, alcohol abuse Family history: hypertension Medications and Allergies Allergies Allergy/AdvReac Type Severity Reaction Status Date / Time No Known Allergies Allergy Unverified 12/19/17 07:20 Home Medications Medication Instructions Recorded Confirmed Last Taken Type Clonidine HCl [Catapres] 0.3 mg PO TID 12/19/17 12/19/17 12/19/17 History Cyclobenzaprine [Flexeril 10 MG 1 tab PO BID PRN 12/19/17 12/19/17 12/19/17 History TAB] Doxazosin Mesylate 8 mg PO HS 12/19/17 12/19/17 12/19/17 History Furosemide [Lasix] 1 tab PO DAILY 12/19/17 12/19/17 12/19/17 History Losartan [Cozaar] 100 mg PO QDAY 12/19/17 12/19/17 12/19/17 History Active Meds: Active Medications Alprazolam (Xanax) 0.25 mg PO TID PRN PRN Reason: Anxiety Last Admin: 12/20/17 00:29 Dose: 0.25 mg Amlodipine Besylate (Norvasc) 10 mg PO QDAY FOR[facility], [facility]1983 Last Admin: 12/20/17 11:37 Dose: 10 mg Clonidine HCl (Catapres) 0.3 mg PO TID [facility], [facility]1983 Last Admin: 12/20/17 13:15 Dose: 0.3 mg Cyclobenzaprine HCl (Flexeril) 10 mg PO BID PRN PRN Reason: back pain Doxazosin Mesylate (Cardura) 8 mg PO HS [facility], [facility]1983 Last Admin: 12/19/17 23:01 Dose: 8 mg Heparin Sodium (Porcine) (Heparin) 5,000 unit SUB-Q Q12HR [facility], [facility]1983 Last Admin: 12/20/17 11:38 Dose: 5,000 unit Hydralazine HCl (Apresoline) 10 mg IV Q4HR PRN PRN Reason: Hypertension Last Admin: 12/19/17 17:30 Dose: 10 mg Hydromorphone HCl (Dilaudid) 0.5 mg IV Q8H PRN PRN Reason: Pain , Severe (7-10) Last Admin: 12/20/17 00:55 Dose: 0.5 mg Ceftriaxone Sodium 1 gm/ (Sodium Chloride) 20 mls @ 20 mls/10 min IV Q24HR FERNANDO Last Admin: 12/20/17 12:13 Dose: 20 mls/10 min Nicardipine HCl 50 mg/ Sodium (Chloride) 250 mls @ 25 mls/hr IV TITR FERNANDO; 5 MG/ HR PRN Reason: Protocol Last Titration: 12/19/17 23:25 Dose: 0 mg/hr, 0 mls/hr Labetalol HCl 200 mg/ Dextrose 200 mls @ 120 mls/hr IV TITR FERNANDO; 2 MG/MIN PRN Reason: Protocol Last Admin: 12/20/17 08:36 Dose: 4 mg/min, 240 mls/hr Lactulose (Cephulac) 20 gm PO ONCE NR Stop: 12/20/17 16:00 Losartan Potassium (Cozaar) 100 mg PO DAILY [facility] Last Admin: 12/20/17 11:38 Dose: 100 mg Minoxidil (Loniten) 5 mg PO DAILY [facility] Last Admin: 12/20/17 12:14 Dose: 5 mg Oxycodone/Acetaminophen (Percocet 5/325) 2 tab PO Q6H PRN PRN Reason: Pain, Moderate (4-6) Last Admin: 12/20/17 08:33 Dose: 2 tab Peritoneal Dialysis Solution (Dianeal Low Calcium W/1.5% Dextrose) 2,000 ml IP 4XD [facility], [facility] Last Admin: 12/20/17 12:16 Dose: 2,000 ml Polyethylene Glycol (Miralax 3350) 17 gm PO QDAY PRN PRN Reason: Constipation Last Admin: 12/19/17 16:07 Dose: 17 gm Vancomycin HCl (Vancomycin Pharmacy To Dose) 1 each IV PKCONSULT FERNANDO PRN Reason: Protocol Physical Examination Vital signs: Vital Signs Temp Pulse Resp BP Pulse Ox 98.3 F 100 H 16 266/165 99 12/19/17 07:20 12/19/17 07:20 12/19/17 07:20 12/19/17 07:20 12/19/17 07:20 Results - Laboratory Findings CBC and BMP: 02/23/18 03:58 12/20/17 03:58 Abnormal lab findings: Abnormal Labs 12/19/17 12/19/17 12/19/17 07:28 07:28 08:41 RBC 3.25 L Hgb 10.0 L Hct 29.1 L MCHC Plt Count 135 L Lymph % (Auto) 10.8 L Wilkes % (Auto) 8.2 H Lymph # 0.9 L Seg Neutrophils % 80.3 H Sodium Chloride 96.4 L 96.3 L Carbon Dioxide 21 L 21 L BUN 101 H 99 H Creatinine 12.0 H 12.0 H Glucose 152 H 152 H POC Glucose Calcium 8.1 L 7.6 L Total Protein 5.8 L Albumin 3.7 L 3.6 L 12/19/17 12/20/17 12/20/17 23:42 03:58 03:58 RBC 3.20 L Hgb 9.9 L Hct 28.6 L MCHC 35 H Plt Count Lymph % (Auto) 7.4 L Wilkes % (Auto) Lymph # 0.6 L Seg Neutrophils % 86.0 H Sodium 136 L Chloride 92.1 L Carbon Dioxide BUN 96 H Creatinine 11.8 H Glucose 174 H POC Glucose 138 H Calcium 7.6 L Total Protein Albumin
[2017-12-20] MEDS: NORMODYNE PO SCH ×2 (15:31→22:07)
[2017-12-20] MEDS ORDERED: CARDENE 50 MG in NACL 0.9% 250ML 230 ML IV SCH (16:00)
[2017-12-20] MEDS ORDERED: ZOFRAN ONE (17:25)
[2017-12-20] MEDS ORDERED: ZOFRAN IV PRN (17:28)
[2017-12-20] MEDS: PEPCID PO SCH (18:58)
[2017-12-20] MEDS ORDERED: NORMODYNE PO SCH (22:49)
[2017-12-20] MEDS: CARDURA PO SCH (23:23)
[2017-12-20] MEDS: APRESOLINE PO SCH (23:38)
--- NOTE | 2017-12-21 00:20 | Consultation ---
PULMONARY AND CRITICAL CARE CONSULTATION CONSULTING PHYSICIAN: Radha Romeo MD REASON FOR CONSULTATION: Hypertensive emergency. CHIEF COMPLAINT AND HISTORY OF PRESENT ILLNESS: The patient is a 47-year-old -[place] male with past medical history significant amongst other things for a diagnosis of end-stage renal disease on peritoneal dialysis, came in complaining of abdominal pain, reduced p.o. intake, has been going on for about 3 days. He denied fevers or chills. He was evaluated in the Emergency Room, with suspicion for possible peritonitis he was started on empiric antibiotics, IV fluids, supportive care. He was admitted to the medical floor. On the medical floor, he decompensated by becoming severely hypertensive, needing IV antihypertensive medication. I was called and ICU admission was given. When I stopped by to see him, he still was running systolics around 199. He reportedly had been weaned off the IV therapy earlier. He just had an episode of spontaneous vomiting. He denied any hematemesis. He complained of some mild chest pain that was nonradiating and intermittent. When asked about tobacco use or abuse history, he denied any whatsoever. That really is as much of the history of presentation as I have but. PAST MEDICAL HISTORY: Again; 1. End-stage renal disease, on peritoneal dialysis. 2. Hypertension. 3. Anemia. PAST SURGICAL HISTORY: He has had a peritoneal dialysis catheter placed. MEDICATIONS: He was on at the time I stopped by to see him were reviewed, pertinent medications included the following: Amlodipine 10 mg p.o. daily, Rocephin 1 gram IV daily, clonidine 0.3 mg p.o. t.i.d., Flexeril 10 mg p.o. b.i.d. p.r.n., Cardura 8 mg p.o. at bedtime, heparin 5000 units subcutaneous q.12h., p.r.n. hydralazine, Dilaudid 0.5 mg IV q.8h., labetalol drip had been going at 2 mg per minute earlier. Normodyne just been scheduled 200 mg p.o. b.i.d. Cozaar 100 mg p.o. daily, minoxidil 5 mg p.o. daily, p.r.n. Percocets. Vancomycin he received 1 gram dose. ALLERGIES: No known drug allergies. DIET: Thin gentleman. Denies significant weight loss or gain preceding few weeks to months. FAMILY AND SOCIAL HISTORY: Lives in the family. Denies alcohol, tobacco, or illicit drug use or abuse. There is family history of hypertension. REVIEW OF SYSTEMS: He denies any loss of consciousness. No new onset seizures. No new onset focal weakness. No gross hematochezia or melena. No gross hematuria. He had emesis. No hematemesis. No new onset seizures. Complete 13 system review of systems was obtained. Pertinent positives and/or negatives as in body of history above. Otherwise, they are noncontributory. PHYSICAL EXAMINATION: VITAL SIGNS: At presentation, he was afebrile, temperature 98.3 degrees Fahrenheit, pulse of 100, respiratory rate of 16, blood pressure 266/165, oxygen sats were 99%, inspired oxygen concentration was not recorded at that time. GENERAL: A well-built -Hungarian male, normocephalic, atraumatic, talking to me in full sentences without significant respiratory distress. HEENT: Examination of head, eyes, ears, nose, and throat: He is anicteric. No conjunctival erythema. No jugular venous distention. No thyromegaly. Oropharynx is moist, is a Mallampati #2. No palpable lymph nodes in the supraclavicular or submandibular lymph node chains. LUNGS: Auscultation of both lung august unremarkable, clear bilaterally. HEART: Sounds 1 and 2 are heard, regular rate and rhythm at time of my evaluation, no rubs or murmurs. ABDOMEN: Soft. Bowel sounds are positive, nontender. No palpable hepatosplenomegaly. EXTREMITIES: Without overt digital clubbing or cyanosis. No pedal edema. Dorsalis pedis pulses are palpable bilaterally. NEUROLOGIC: Pupils are equal, round, about 4 mm, reactive to light. Extraocular muscle movements appear intact. SKIN: The skin is of normal turgor, no rash, no cellulitis. LABORATORY DATA: From my review, admission white cell count 8200, hemoglobin 10.0, hematocrit 29.1, platelet count 135. It is up to 179 today. Serum sodium 138, potassium 4.6, chloride 96, bicarbonate 21, BUN 101, creatinine 12.0, glucose 152. Lactic acid within normal limits. Liver function tests essentially within normal limits. Urinalysis unremarkable. Blood cultures, no growth to date. Peritoneal dialysis fluid, no growth to date. CT of the abdomen and pelvis was done at presentation. I have reviewed the radiologist's interpretation. Essentially no acute inflammatory process, just changes consistent with his peritoneal dialysis catheter. Chest x-ray shows borderline cardiomegaly, no gross pneumothorax, no gross bony fracture, no focal infiltrates. ASSESSMENT: 1. Hypertensive emergency. 2. End-stage renal disease, on peritoneal dialysis. 3. Chest pain, atypical. 4. Anemia. PLAN: I will begin a Cardene drip and titrate to keep systolic blood pressures less than or equal to about 160 mmHg. He had refused hydralazine earlier. I will discuss with him and if he allows me to give him IV hydralazine, schedule it with hold parameters. He states it makes his legs swell. I will explain to him it is just in the short term that will be using the hydralazine. He will continue on his other p.o. medications. He has just been started on p.o. labetalol. All other p.o. meds will be introduced or adjusted as necessary. Aspiration precautions will be maintained. Bronchodilators will be on a p.r.n. basis. We will follow him with continued empiric antibiotic therapy, deescalate based on results of clinical and microbiologic data. We will continue to watch him for any signs of significant peritonitis. He will be placed on GI prophylaxis. He is appropriately on DVT prophylaxis. Flu and pneumonia vaccination will be per protocol. Thank you very much for the consult. We will follow along and make further recommendations as picture progresses/becomes clearer. He is critically ill on life-sustaining medications including the vasoactive medications, Cardene, as well as the labetalol, at risk for further deterioration including . I have spent about 30-35 minutes of critical care time without overlap. JOB# [id number] MARIAJOSE/KIERAN VILLATORO
[2017-12-21] MEDS: NORMODYNE 200 MG in D5W 160 ML IV SCH (00:58)
[2017-12-21] MEDS: DIANEAL LOW CALCIUM W/1.5% DEXTROSE IP SCH ×4 (05:31→18:18)
--- NOTE | 2017-12-21 07:28 | Progress Note ---
Assessment and Plan 1. Peritonitis: Culture is pending. Continue Vancomycin and Ceftriaxone. Symptoms are improving. 2. ESRD: PD with 1.5% solution 4 times a day, manual exchanges. Monitor lytes. 3. Uncontrolled HTN: IV antihypertensive meds were stopped at 3 AM today. BP is around 130/80. Increase Labetalol to 800 mg BID. Highly likely that the high anxiety levels is contributing to high BP. Psychiatrist consulted. 4. Anemia: Monitor. 5. Anxiety: Prn Xanax. Psychiatry consult. D/w his mother at the bedside. Subjective Date of service: 12/21/17 Interval history: Patient was seen and examined at the bedside, in ICU. Objective - Vital Signs Vital signs: Vital Signs - 12hr 12/20/17 12/20/17 12/20/17 19:30 19:49 20:00 Temperature Pulse Rate 91 H 93 H 93 H Pulse Rate [ Apical] Respiratory 16 14 Rate Blood Pressure 177/95 129/72 155/92 O2 Sat by Pulse 100 99 Oximetry 12/20/17 12/20/17 12/20/17 20:30 21:00 21:03 Temperature 98.2 F Pulse Rate 91 H 90 Pulse Rate [ Apical] Respiratory 14 16 Rate Blood Pressure 153/88 156/86 O2 Sat by Pulse 100 100 Oximetry 12/20/17 12/20/17 12/20/17 21:12 21:30 22:00 Temperature Pulse Rate 91 H 93 H Pulse Rate [ 90 Apical] Respiratory 18 15 16 Rate Blood Pressure 148/85 145/82 O2 Sat by Pulse 99 100 100 Oximetry 12/20/17 12/20/17 12/20/17 22:07 22:30 23:00 Temperature Pulse Rate 91 H 89 88 Pulse Rate [ Apical] Respiratory 14 16 Rate Blood Pressure 145/82 129/90 146/74 O2 Sat by Pulse 100 100 Oximetry 12/20/17 12/20/17 12/21/17 23:23 23:30 00:00 Temperature Pulse Rate 88 89 88 Pulse Rate [ Apical] Respiratory 19 14 Rate Blood Pressure 153/82 153/82 159/76 O2 Sat by Pulse 100 100 Oximetry 12/21/17 12/21/17 12/21/17 00:10 00:30 01:00 Temperature Pulse Rate 87 86 85 Pulse Rate [ Apical] Respiratory 21 15 16 Rate Blood Pressure 159/76 148/73 136/75 O2 Sat by Pulse 100 99 100 Oximetry 12/21/17 12/21/17 12/21/17 01:30 02:00 02:30 Temperature Pulse Rate 84 83 84 Pulse Rate [ Apical] Respiratory 16 18 14 Rate Blood Pressure 139/77 147/78 124/72 O2 Sat by Pulse 100 100 100 Oximetry 12/21/17 12/21/17 12/21/17 03:00 03:30 04:00 Temperature Pulse Rate 85 83 84 Pulse Rate [ Apical] Respiratory 14 13 16 Rate Blood Pressure 126/74 132/68 138/75 O2 Sat by Pulse 100 100 100 Oximetry 12/21/17 12/21/17 12/21/17 04:16 04:30 05:00 Temperature Pulse Rate 85 85 Pulse Rate [ Apical] Respiratory 19 17 17 Rate Blood Pressure 128/83 134/86 O2 Sat by Pulse 98 99 99 Oximetry 12/21/17 12/21/17 12/21/17 05:09 05:30 06:00 Temperature 97.9 F Pulse Rate 86 87 Pulse Rate [ Apical] Respiratory 17 17 Rate Blood Pressure 128/77 122/77 O2 Sat by Pulse 99 100 Oximetry - General Appearance General appearance: well-developed, appears stated age, other (sleeping ) EENT: ATNC Respiratory: Present: Clear to Ascultation Cardiology: regular, S1S2, no murmurs Gastrointestinal: normoactive bowel sounds, no tenderness, no distended, other ( PD catheter noted) Integumentary: no rash, warm and dry Neurologic: no focal deficit Musculoskeletal: other (no edema) - Lab 12/20/17 03:58 12/20/17 03:58 Most recent lab results Calcium 7.6 mg/dL (8.4-10.2) L 12/20/17 03:58
[2017-12-21] MEDS: NORMODYNE PO SCH ×2 (08:37→11:20)
[2017-12-21] MEDS: CATAPRES PO SCH ×3 (09:00→20:56)
--- NOTE | 2017-12-21 09:30 | Progress Note ---
Assessment and Plan Assessment and plan: --Hypertensive urgency; today blood pressures are controlled off Labetalol drip, optimize antihypertensive medications, nephrology pulmonary following --End-stage renal disease; on peritoneal dialysis per schedule --Possible peritonitis; follow cultures, continue empiric antibiotics, Vancomycin and Rocephin --Anemia of end-stage renal disease closely monitor H&H, Procrit , transfuse as needed --DVT prophylaxis; heparin, renal dose Closely monitor the patient and adjust management as needed Patient is stable to be Transferred out of ICU to telemetry Plan of care is reviewed with the patient and his nurse Disposition; may discharge in 1-2 days if stable Critical care time 31 minutes History Interval history: Patient seen and examined medical records reviewed No overnight events reported by nursing staff Blood pressures reasonable control Denies any chest pain or shortness of breath Denies abdominal pain Vital signs reviewed Hospitalist Physical - Constitutional Vitals: Temp Pulse Resp BP Pulse Ox 97.6 F 92 H 17 152/72 100 12/21/17 08:00 12/21/17 09:00 12/21/17 06:00 12/21/17 09:00 12/21/17 06:00 General appearance: Present: no acute distress, well-nourished - EENT Eyes: Present: PERRL, EOM intact - Neck Neck: Present: supple, normal ROM - Respiratory Respiratory effort: normal Respiratory: negative: rales, rhonchi, wheezing - Cardiovascular Rhythm: regular Heart Sounds: Present: S1 & S2 - Extremities Extremities: no ischemia, No edema - Abdominal General gastrointestinal: soft, non-tender, non-distended, normal bowel sounds - Integumentary Integumentary: Present: clear, warm - Psychiatric Psychiatric: appropriate mood/affect, cooperative - Neurologic Neurologic: CNII-XII intact, moves all extremities Results - Labs CBC & Chem 7: 12/20/17 03:58 12/20/17 03:58 Labs: Laboratory Last Values WBC 8.2 K/mm3 (4.5-11.0) 12/20/17 03:58 RBC 3.20 M/mm3 (3.65-5.03) L 12/20/17 03:58 Hgb 9.9 gm/dl (11.8-15.2) L 12/20/17 03:58 Hct 28.6 % (35.5-45.6) L 12/20/17 03:58 MCV 89 fl (84-94) 12/20/17 03:58 MCH 31 pg (28-32) 12/20/17 03:58 MCHC 35 % (32-34) H 12/20/17 03:58 RDW 14.0 % (13.2-15.2) 12/20/17 03:58 Plt Count 179 K/mm3 (140-440) 12/20/17 03:58 Lymph % (Auto) 7.4 % (13.4-35.0) L 12/20/17 03:58 [place] % (Auto) 6.2 % (0.0-7.3) 12/20/17 03:58 Eos % (Auto) 0.2 % (0.0-4.3) 12/20/17 03:58 Baso % (Auto) 0.2 % (0.0-1.8) 12/20/17 03:58 Lymph # 0.6 K/mm3 (1.2-5.4) L 12/20/17 03:58 [place] # 0.5 K/mm3 (0.0-0.8) 12/20/17 03:58 Eos # 0.0 K/mm3 (0.0-0.4) 12/20/17 03:58 Baso # 0.0 K/mm3 (0.0-0.1) 12/20/17 03:58 Seg Neutrophils % 86.0 % (40.0-70.0) H 12/20/17 03:58 Seg Neutrophils # 7.1 K/mm3 (1.8-7.7) 12/20/17 03:58 Sodium 136 mmol/L (137-145) L 12/20/17 03:58 Potassium 4.2 mmol/L (3.6-5.0) 12/20/17 03:58 Chloride 92.1 mmol/L (98-107) L 12/20/17 03:58 Carbon Dioxide 25 mmol/L (22-30) 12/20/17 03:58 Anion Gap 23 mmol/L 12/20/17 03:58 BUN 96 mg/dL (9-20) H 12/20/17 03:58 Creatinine 11.8 mg/dL (0.8-1.5) H 12/20/17 03:58 Estimated GFR 6 ml/min 12/20/17 03:58 BUN/Creatinine Ratio 8 % 12/20/17 03:58 Glucose 174 mg/dL (75-100) H 12/20/17 03:58 POC Glucose 138 (70-105) H 12/21/17 05:54 Lactic Acid 1.20 mmol/L (0.7-2.0) 12/19/17 13:10 Calcium 7.6 mg/dL (8.4-10.2) L 12/20/17 03:58 Total Bilirubin 0.50 mg/dL (0.1-1.2) 12/19/17 08:41 AST 15 units/L (5-40) 12/19/17 08:41 ALT 20 units/L (7-56) 12/19/17 08:41 Alkaline Phosphatase 57 units/L (35-129) 12/19/17 08:41 Total Protein 5.8 g/dL (6.3-8.2) L 12/19/17 08:41 Albumin 3.6 g/dL (3.9-5) L 12/19/17 08:41 Albumin/Globulin Ratio 1.6 % 12/19/17 08:41 Amylase 97 units/L (27-131) 12/19/17 08:41 Lipase 22 units/L (13-60) 12/19/17 08:41 Urine Color Yellow (Yellow) 12/19/17 09:28 Urine Turbidity Clear (Clear) 12/19/17 09:28 Urine pH 6.0 (5.0-7.0) 12/19/17 09:28 Ur Specific [place] 1.013 (1.003-1.030) 12/19/17 09:28 Urine Protein 100 mg/dl mg/dL (Negative) 12/19/17 09:28 Urine Glucose (UA) 50 mg/dL (Negative) 12/19/17 09:28 Urine Ketones Neg mg/dL (Negative) 12/19/17 09:28 Urine Blood Sm (Negative) 12/19/17 09:28 Urine Nitrite Neg (Negative) 12/19/17 09:28 Urine Bilirubin Neg (Negative) 12/19/17 09:28 Urine Urobilinogen 2.0 mg/dL (<2.0) 12/19/17 09:28 Ur Leukocyte Esterase Neg (Negative) 12/19/17 09:28 Urine WBC (Auto) 1.0 /HPF (0.0-6.0) 12/19/17 09:28 Urine RBC (Auto) 1.0 /HPF (0.0-6.0) 12/19/17 09:28 Fluid Type Peritoneal 12/19/17 Unknown Fluid Color Yellow 12/19/17 Unknown Fluid Appearance Cloudy 12/19/17 Unknown Fluid WBC 11079 /mm3 12/19/17 Unknown Fluid RBC 450 /mm3 12/19/17 Unknown Fluid Seg Neutrophils 74.0 % 12/19/17 Unknown Fluid Lymphocytes 20.0 % 12/19/17 Unknown Fluid Reactive Lymphs 0 % 12/19/17 Unknown Fluid Monocytes 2.0 % 12/19/17 Unknown Fluid Eosinophils 4.0 % 12/19/17 Unknown Fluid Basophils 0 % 12/19/17 Unknown Random Vancomycin 18.7 ug/mL (0-40.0) 12/21/17 08:34
[2017-12-21] MEDS: cefTRIAXone 1 GM in NACL 0.9% 20 ML IV SCH (10:30)
[2017-12-21] MEDS: HEPARIN SUB-Q SCH ×2 (11:17→21:09)
[2017-12-21] MEDS: NORVASC PO SCH (11:18)
[2017-12-21] MEDS: PEPCID PO SCH ×2 (11:18→21:10)
[2017-12-21] MEDS: LONITEN PO SCH (11:18)
[2017-12-21] MEDS: COZAAR PO SCH (11:19)
[2017-12-21] MEDS: PERCOCET 5/325 PO PRN (13:20)
--- NOTE | 2017-12-21 14:24 | Progress Note ---
Assessment and Plan Hypertensive emergency. End-stage renal disease, on peritoneal dialysis. Chest pain, atypical. Anemia. - continue to adjust oral anti-hypertensives - continue PD per nephrology recs - aspiration precautions - prn bronchodilators - GI & VTE prophylaxis ...will see prn Subjective Date of service: 12/21/17 Principal diagnosis: Hypertensive emergency; ESRD on PD; Chest Pain Interval history: Patient seen today for: Hypertensive emergency; ESRD on PD; Chest Pain Seen and examined at bedside; 24 hour events reviewed; nursing and respiratory care staff consulted; no adverse overnight events reported to me; resting peacefully; no N/V/F/C; no new issues otherwise Objective Vital Signs - 12hr 12/21/17 12/21/17 12/21/17 02:30 03:00 03:30 Temperature Pulse Rate 84 85 83 Respiratory 14 14 13 Rate Blood Pressure 124/72 126/74 132/68 O2 Sat by Pulse 100 100 100 Oximetry 12/21/17 12/21/17 12/21/17 04:00 04:16 04:30 Temperature Pulse Rate 84 85 Respiratory 16 19 17 Rate Blood Pressure 138/75 128/83 O2 Sat by Pulse 100 98 99 Oximetry 12/21/17 12/21/17 12/21/17 05:00 05:09 05:30 Temperature 97.9 F Pulse Rate 85 86 Respiratory 17 17 Rate Blood Pressure 134/86 128/77 O2 Sat by Pulse 99 99 Oximetry 12/21/17 12/21/17 12/21/17 06:00 06:30 07:00 Temperature Pulse Rate 87 88 86 Respiratory 17 15 16 Rate Blood Pressure 122/77 124/82 131/77 O2 Sat by Pulse 100 100 100 Oximetry 12/21/17 12/21/17 12/21/17 07:30 08:00 08:30 Temperature 97.6 F Pulse Rate 87 84 89 Respiratory 15 16 19 Rate Blood Pressure 140/82 150/75 151/82 O2 Sat by Pulse 100 100 99 Oximetry 12/21/17 12/21/17 12/21/17 08:37 09:00 09:30 Temperature Pulse Rate 89 90 88 Respiratory 22 26 H Rate Blood Pressure 151/82 161/82 150/78 O2 Sat by Pulse 100 100 Oximetry 12/21/17 12/21/17 12/21/17 10:00 10:30 11:00 Temperature Pulse Rate 87 90 87 Respiratory 29 H 15 17 Rate Blood Pressure 145/76 108/52 155/82 O2 Sat by Pulse 99 100 100 Oximetry 12/21/17 12/21/17 12/21/17 11:18 11:19 11:20 Temperature Pulse Rate 86 92 H 92 H Respiratory Rate Blood Pressure 155/82 152/72 152/72 O2 Sat by Pulse Oximetry 12/21/17 12/21/17 12/21/17 11:30 11:40 11:50 Temperature Pulse Rate 85 85 85 Respiratory 16 17 17 Rate Blood Pressure 158/68 158/68 153/67 O2 Sat by Pulse 99 100 99 Oximetry 12/21/17 12/21/17 12/21/17 12:00 12:10 12:20 Temperature 97.8 F Pulse Rate 85 86 85 Respiratory 15 15 16 Rate Blood Pressure 153/67 153/67 120/36 O2 Sat by Pulse 100 99 100 Oximetry 12/21/17 12/21/17 12:30 12:51 Temperature 98.6 F Pulse Rate 86 Respiratory 18 Rate Blood Pressure 112/49 126/74 O2 Sat by Pulse 100 97 Oximetry Constitutional: no acute distress, alert Eyes: non-icteric ENT: oropharynx moist Neck: supple, no lymphadenopathy Effort: mildly labored Ascultation: Bilateral: rhonchi Percussion: Bilateral: not dull Gastrointestinal: normoactive bowel sounds, soft, non-tender, non-distended Integumentary: normal Extremities: no cyanosis, no edema, pulses normal, no ischemia or petechiae Neurologic: normal mental status, non-focal exam, pupils equal and round, motor strength normal and Psychiatric: mood appropriate, affect normal CBC and BMP: 12/23/17 05:43 12/23/17 05:43 Abnormal lab findings: Abnormal Labs 12/19/17 12/19/17 12/19/17 07:28 07:28 08:41 RBC 3.25 L Hgb 10.0 L Hct 29.1 L MCHC Plt Count 135 L Lymph % (Auto) 10.8 L [place] % (Auto) 8.2 H Lymph # 0.9 L Seg Neutrophils % 80.3 H Sodium Chloride 96.4 L 96.3 L Carbon Dioxide 21 L 21 L BUN 101 H 99 H Creatinine 12.0 H 12.0 H Glucose 152 H 152 H POC Glucose Calcium 8.1 L 7.6 L Total Protein 5.8 L Albumin 3.7 L 3.6 L 12/19/17 12/20/17 12/20/17 23:42 03:58 03:58 RBC 3.20 L Hgb 9.9 L Hct 28.6 L MCHC 35 H Plt Count Lymph % (Auto) 7.4 L [place] % (Auto) Lymph # 0.6 L Seg Neutrophils % 86.0 H Sodium 136 L Chloride 92.1 L Carbon Dioxide BUN 96 H Creatinine 11.8 H Glucose 174 H POC Glucose 138 H Calcium 7.6 L Total Protein Albumin 12/20/17 12/21/17 12/21/17 23:47 05:54 12:02 RBC Hgb Hct MCHC Plt Count Lymph % (Auto) [place] % (Auto) Lymph # Seg Neutrophils % Sodium Chloride Carbon Dioxide BUN Creatinine Glucose POC Glucose 173 H 138 H 149 H Calcium Total Protein Albumin Chest x-ray: image reviewed Allied health notes reviewed: nursing
[2017-12-21] MEDS ORDERED: VANCOMYCIN/0.45 NS 1 GM/250 ML 1 GM/250 ML BAG IV SCH (16:00)
[2017-12-21] MEDS ORDERED: ALUM-MAG HYDROX-SIMETH 200-200-20MG/5ML PO PRN (18:30)
[2017-12-21] MEDS: XANAX PO PRN (19:05)
[2017-12-21] MEDS ORDERED: NORMODYNE PO SCH (22:00)
[2017-12-22] MEDS: NORMODYNE PO SCH ×2 (00:19→13:04)
[2017-12-22] MEDS: CARDURA PO SCH (00:20)
[2017-12-22] MEDS: DIANEAL LOW CALCIUM W/1.5% DEXTROSE IP SCH ×4 (00:32→18:43)
--- NOTE | 2017-12-22 07:52 | Progress Note ---
Assessment and Plan Assessment and plan: 47-year-old -[place] male patient with significant past medical history of hypertension and anxiety disorder end-stage renal disease on peritoneal dialysis, anemia secondary to end-stage renal disease, presented to the emergency room with abdominal pain off to discharge patient., Patient has not been feeling well, not been able to tolerate any by mouth intake. Denies any fever, evaluated by holistic specialist was noted to have hypertensive emergency with systolic blood pressure and 200 was admitted on labetalol drip to the ICU and subsequently transferred to the medical floor steroids and by mouth intake. Presumed CVA * Allow permisive ELEVATED BP, KEEP LESS THAN 180, START ASA, STATIN, NEUROLOGY CONSULT Acute metabolic Encephalopathy * likely from CVA Hypertensive emergency. * Now resolved. Continue by mouth intake of blood pressure medications End-stage renal disease, on peritoneal dialysis. * Nurse Ob followed Presumed peritonitis * Continue empiric antibiotics with vancomycin and Rocephin. Cultures of peritoneal fluids being followed. We'll obtain ID consultation Anemia of chronic kidney disease. * Stable we'll continue to monitor DVT prophylaxis; heparin, renal dose Family updated. Disposition; february discharge in 1-2 days if stable History Interval history: Patient seen and examined this a.m. altered sensorium noted this morning. [place]og[place] assessment this is different from patient's normal [facility] Hospitalist Physical - Physical exam Narrative exam: VITAL SIGNS: Reviewed. GENERAL: The patient appeared well nourished and normally developed. Vital signs as documented. HEAD: No signs of head trauma. EYES: Pupils are equal. Extraocular motions intact. EARS: Hearing grossly intact. MOUTH: Oropharynx is normal. NECK: No adenopathy, no JVD. CHEST: Chest with clear breath sounds bilaterally. No wheezes, rales, or rhonchi. CARDIAC: Regular rate and rhythm. S1 and S2, without murmurs, gallops, or rubs. VASCULAR: No Edema. Peripheral pulses normal and equal in all extremities. ABDOMEN: Soft, without detectable tenderness. No sign of distention. No rebound or guarding, and no masses palpated. Bowel Sounds normal. MUSCULOSKELETAL: Good range of motion of all major joints. Extremities without clubbing, cyanosis or edema. NEUROLOGIC EXAM: Opens eyes intermittently, moves all extremities but not following any commands specifically. PSYCHIATRIC: unable to assess SKIN: No rash or lesions. - Constitutional Vitals: Temp Pulse Resp BP Pulse Ox 97.5 F L 82 16 116/67 98 12/22/17 07:37 12/22/17 07:37 12/22/17 07:37 12/22/17 07:37 12/22/17 07:37 General appearance: Present: no acute distress, well-nourished Results - Labs CBC & Chem 7: 12/23/17 05:43 12/23/17 05:43 Labs: Laboratory Last Values WBC 8.2 K/mm3 (4.5-11.0) 12/20/17 03:58 RBC 3.20 M/mm3 (3.65-5.03) L 12/20/17 03:58 Hgb 9.9 gm/dl (11.8-15.2) L 12/20/17 03:58 Hct 28.6 % (35.5-45.6) L 12/20/17 03:58 MCV 89 fl (84-94) 12/20/17 03:58 MCH 31 pg (28-32) 12/20/17 03:58 MCHC 35 % (32-34) H 12/20/17 03:58 RDW 14.0 % (13.2-15.2) 12/20/17 03:58 Plt Count 179 K/mm3 (140-440) 12/20/17 03:58 Lymph % (Auto) 7.4 % (13.4-35.0) L 12/20/17 03:58 [place] % (Auto) 6.2 % (0.0-7.3) 12/20/17 03:58 Eos % (Auto) 0.2 % (0.0-4.3) 12/20/17 03:58 Baso % (Auto) 0.2 % (0.0-1.8) 12/20/17 03:58 Lymph # 0.6 K/mm3 (1.2-5.4) L 12/20/17 03:58 [place] # 0.5 K/mm3 (0.0-0.8) 12/20/17 03:58 Eos # 0.0 K/mm3 (0.0-0.4) 12/20/17 03:58 Baso # 0.0 K/mm3 (0.0-0.1) 12/20/17 03:58 Seg Neutrophils % 86.0 % (40.0-70.0) H 12/20/17 03:58 Seg Neutrophils # 7.1 K/mm3 (1.8-7.7) 12/20/17 03:58 Sodium 136 mmol/L (137-145) L 12/20/17 03:58 Potassium 4.2 mmol/L (3.6-5.0) 12/20/17 03:58 Chloride 92.1 mmol/L (98-107) L 12/20/17 03:58 Carbon Dioxide 25 mmol/L (22-30) 12/20/17 03:58 Anion Gap 23 mmol/L 12/20/17 03:58 BUN 96 mg/dL (9-20) H 12/20/17 03:58 Creatinine 11.8 mg/dL (0.8-1.5) H 12/20/17 03:58 Estimated GFR 6 ml/min 12/20/17 03:58 BUN/Creatinine Ratio 8 % 12/20/17 03:58 Glucose 174 mg/dL (75-100) H 12/20/17 03:58 POC Glucose 177 (70-105) H 12/22/17 01:07 Lactic Acid 1.20 mmol/L (0.7-2.0) 12/19/17 13:10 Calcium 7.6 mg/dL (8.4-10.2) L 12/20/17 03:58 Total Bilirubin 0.50 mg/dL (0.1-1.2) 12/19/17 08:41 AST 15 units/L (5-40) 12/19/17 08:41 ALT 20 units/L (7-56) 12/19/17 08:41 Alkaline Phosphatase 57 units/L (35-129) 12/19/17 08:41 Total Protein 5.8 g/dL (6.3-8.2) L 12/19/17 08:41 Albumin 3.6 g/dL (3.9-5) L 12/19/17 08:41 Albumin/Globulin Ratio 1.6 % 12/19/17 08:41 Amylase 97 units/L (27-131) 12/19/17 08:41 Lipase 22 units/L (13-60) 12/19/17 08:41 Urine Color Yellow (Yellow) 12/19/17 09:28 Urine Turbidity Clear (Clear) 12/19/17 09:28 Urine pH 6.0 (5.0-7.0) 12/19/17 09:28 Ur Specific [place] 1.013 (1.003-1.030) 12/19/17 09:28 Urine Protein 100 mg/dl mg/dL (Negative) 12/19/17 09:28 Urine Glucose (UA) 50 mg/dL (Negative) 12/19/17 09:28 Urine Ketones Neg mg/dL (Negative) 12/19/17 09: Urine Blood Sm (Negative) 12/19/17 09:28 Urine Nitrite Neg (Negative) 12/19/17 09:28 Urine Bilirubin Neg (Negative) 12/19/17 09: Urine Urobilinogen 2.0 mg/dL (<2.0) 12/19/17 09:28 Ur Leukocyte Esterase Neg (Negative) 12/19/17 09:28 Urine WBC (Auto) 1.0 /HPF (0.0-6.0) 12/19/17 09:28 Urine RBC (Auto) 1.0 /HPF (0.0-6.0) 12/19/17 09:28 Fluid Type Peritoneal 12/19/17 Unknown Fluid Color Yellow 12/19/17 Unknown Fluid Appearance Cloudy 12/19/17 Unknown Fluid WBC 91429 /mm3 12/19/17 Unknown Fluid RBC 450 /mm3 12/19/17 Unknown Fluid Seg Neutrophils 74.0 % 12/19/17 Unknown Fluid Lymphocytes 20.0 % 12/19/17 Unknown Fluid Reactive Lymphs 0 % 12/19/17 Unknown Fluid Monocytes 2.0 % 12/19/17 Unknown Fluid Eosinophils 4.0 % 12/19/17 Unknown Fluid Basophils 0 % 12/19/17 Unknown Random Vancomycin 18.7 ug/mL (0-40.0) 12/21/17 08:34
--- NOTE | 2017-12-22 08:04 | Progress Note ---
Assessment and Plan 1. Altered mental status: CT and MRI brain results noted. He is currently on ASA, Neuro consulted. Further workup includes Cardiology consult and Echo. Start on IV fluids. 2. Peritonitis: MRSA peritonitis. Continue Vancomycin. Will stop Ceftriaxone. ID consulted. 3. ESRD: Continue PD with 1.5% solution 4 times a day, manual exchanges. Monitor lytes. 4. Uncontrolled HTN: Today his BP is fairly normal without meds. Monitor BP. 5. Anemia: Monitor. D/w his mother at the bedside. Also discussed in length with his over the phone. Subjective Date of service: 12/22/17 Principal diagnosis: Hypertensive emergency; ESRD on PD; Chest Pain Interval history: Patient was seen and examined at the bedside. Difficult to arouse. Objective - Vital Signs Vital signs: Vital Signs - 12hr 12/21/17 12/21/17 12/22/17 20:56 22:00 00:12 Temperature 98.6 F Pulse Rate 89 88 Pulse Rate [ 84 Left Radial] Respiratory 20 20 Rate Blood Pressure 129/75 143/82 O2 Sat by Pulse 99 Oximetry 12/22/17 12/22/17 12/22/17 00:19 00:20 07:37 Temperature 97.5 F L Pulse Rate 88 88 82 Pulse Rate [ Left Radial] Respiratory 16 Rate Blood Pressure 143/86 143/82 116/67 O2 Sat by Pulse 98 Oximetry - General Appearance General appearance: well-developed, appears stated age, other (stuporous) EENT: ATNC, other (slight unequal pupils) Neck: supple Respiratory: Present: Clear to Ascultation Cardiology: regular, S1S2 Gastrointestinal: normoactive bowel sounds, no tenderness, other (PD catheter noted) Integumentary: no rash Neurologic: other (follows some simple command, non-verbal) Musculoskeletal: other (no edema) - Lab 12/20/17 03:58 12/20/17 03:58 Most recent lab results Calcium 7.6 mg/dL (8.4-10.2) L 12/20/17 03:58
--- NOTE | 2017-12-22 08:58 | Cat Scan Report ---
FINAL REPORT EXAM: CT HEAD/BRAIN WO CON HISTORY: R/o Stroke. TECHNIQUE: CT imaging acquired through the head without intravenous contrast. Transaxial reformations are provided. PRIORS: None. FINDINGS: There is an ill-defined hypodense region in the anterior left basal ganglia abutting the internal capsule and left caudate nucleus on axial series 2, images 33 and 34 measuring 11 x 12 millimeters in greatest transaxial dimensions. The ventricles, cisterns and sulci are within normal limits. No intraparenchymal or extra-axial mass, hemorrhage, or mass effect. Rodgers and white-matter differentiation is otherwise within normal limits. Normal spherical shape of the globes. No significant abnormality involving the imaged portions of the paranasal sinuses and mastoid air cells. No skull or facial fracture visualized. IMPRESSION: Ill-defined hypodense region adjacent to the left caudate nucleus may represent subacute or older infarct. No acute intracranial hemorrhage or mass effect. Consider follow-up MRI with contrast. Dr. Rangel discussed findings with Nurse Zainab Musa at 0752 central Time on 12/22/2017 immediately following the examination.
[2017-12-22] MEDS: cefTRIAXone 1 GM in NACL 0.9% 20 ML IV SCH (10:00)
[2017-12-22] MEDS ORDERED: ATIVAN IV ONE (10:56)
[2017-12-22] MEDS: CATAPRES PO SCH (10:57)
--- NOTE | 2017-12-22 11:45 | Magnetic Resonance Report ---
MRI scan of brain without IV contrast: History: Rule out stroke. Findings: Ventricles are normal in size and midline in location. 2 and 3 mm focal areas of hyperintensity/restricted diffusion is noted along the watershed area bilaterally and posterior parietal region bilaterally. 2 mm focal area of restricted diffusion at the right temporal lobe. 2 mm focal area of restricted diffusion in left cerebellum. No evidence of hemorrhage. No extra-axial fluid collection. Normal brainstem. 1 cm focal area of low signal intensity adjacent to left caudate nucleus suggestive of chronic ischemia. No corresponding restricted diffusion. Multiple focal areas of hyperintensity periventricular region bilaterally on flair imaging without restricted diffusion. 2 cm retention cyst or polyp left maxillary sinus. Impression: Multiple focal areas of restricted diffusion bilaterally as detailed above suggestive of acute ischemic changes. Chronic ischemia/lacunar infarct left basal ganglia. Small vessel ischemic changes. Retention cyst or polyp left maxillary sinus.
[2017-12-22] MEDS: COZAAR PO SCH (12:45)
[2017-12-22] MEDS: PEPCID PO SCH (13:04)
[2017-12-22] MEDS: NORVASC PO SCH (13:04)
[2017-12-22] MEDS: ASPIRIN PR SCH (13:46)
[2017-12-22 14:33] LABS: Creatine Kinase MB 2.1 ng/mL (0.0-4.0)
[2017-12-22 14:47] LABS: Chol/HDL Ratio 3.62 %
[2017-12-22] MEDS: ASPIRIN PO SCH (15:29)
[2017-12-22] MEDS: HEPARIN SUB-Q SCH (15:51)
[2017-12-22] MEDS: LONITEN PO SCH (15:51)
[2017-12-22] MEDS ORDERED: NACL 0.9% 1000 ML 1,000 ML ONE (18:29)
[2017-12-22] MEDS ORDERED: NACL 0.9% 1000 ML 1,000 ML IV SCH (19:00)
[2017-12-22] MEDS ORDERED: PRAVACHOL PO SCH (22:00)
[2017-12-23] MEDS: PEPCID PO SCH ×2 (00:12→10:28)
[2017-12-23] MEDS: XANAX PO PRN (00:52)
[2017-12-23] MEDS ORDERED: HALDOL IM ONE (03:56)
[2017-12-23 05:53] LABS: Basophils % (Auto) 0.2 % (0.0-1.8); Eosinophils % (Auto) 0.2 % (0.0-4.3); Hemoglobin 8.5 gm/dl (11.8-15.2); Lymphocytes # (Auto) 1.1 K/mm3 (1.2-5.4); Mean Corpuscular HGB Conc 34 % (32-34); Mean Corpuscular Hemoglobin 31 pg (28-32); Mean Corpuscular Volume 90 fl (84-94); Monocytes # (Auto) 0.9 K/mm3 (0.0-0.8); Monocytes % (Auto) 6.4 % (0.0-7.3); Platelet Count 299 K/mm3 (140-440); Red Blood Count 2.78 M/mm3 (3.65-5.03); Red Cell Distribution Width 14.5 % (13.2-15.2)
[2017-12-23 06:22] LABS: Albumin 2.6 g/dL (3.9-5); Calcium 7.1 mg/dL (8.4-10.2)
[2017-12-23] MEDS: APRESOLINE IV PRN (06:54)
[2017-12-23 06:58] VITALS: BP 187/103
--- NOTE | 2017-12-23 09:08 | Progress Note ---
Assessment and Plan Assessment and plan: 47-year-old -[place] male patient with significant past medical history of hypertension and anxiety disorder end-stage renal disease on peritoneal dialysis, anemia secondary to end-stage renal disease, presented to the emergency room with abdominal pain off to discharge patient., Patient has not been feeling well, not been able to tolerate any by mouth intake. Denies any fever, evaluated by family services assistant was noted to have hypertensive emergency with systolic blood pressure and 200 was admitted on labetalol drip to the ICU and subsequently transferred to the medical floor steroids and by mouth intake. Multifocal CVA * Allow permisive Begin to slowly improve BP. continue ASA, STATIN, NEUROLOGY CONSULT, ECHO, speech, PT OT * Transferred to TELE. pLACE ON MONITOR. Acute metabolic Encephalopathy * Resolved per patient was very belligerent this morning. Likely from CVA Hypertensive emergency. * Now resolved. Continue by mouth intake of blood pressure medications End-stage renal disease, on peritoneal dialysis. * Timber Inspector followed Presumed peritonitis * Continue empiric antibiotics with vancomycin and Rocephin. Cultures of peritoneal fluids being followed. We'll obtain ID consultation Anemia of chronic kidney disease. * Stable we'll continue to monitor Type 2 NC * Consult cardiology ATAXIC GAIt * Likely as a result of the CVA DVT prophylaxis; heparin, renal dose Discussed extensively with the patient and also with the mother also with a spouse and family services assistant. Patient is alert awake oriented x3 and signed out AGAINST MEDICAL ADVICE he understands that he has severe peritonitis and needs to be on antibiotics. I discussed with nephrology who states that they will be able to give him vancomycin during dialysis but would require him to come to hemodialysis. I will proceed and right and aspirin and statin medication outpatient. I have advised family that patient still needs extensive workup. The reports to me that the patient's blood pressures normally stays high in the 180s and every time he gets upset shoots up to above 200 and the patient is very noncompliant with medications outpatient. She unfortunately cannot control him I'll have him stay in the hospital. The son came and took the patient home. The mother initially refused me speaking to the states that the is not his admitted that noted an . History Interval history: Patient seen and examined this morning was fully awake alert and oriented very agitated and angry. He demanded to be removed from restraints. He was aggressive with staff and also with his mother screaming words of them. Repeatedly reported to me that he understands why he is here but does not need to be he'll want to be here. He understands that the restraints also his safety as he is ataxic and stable. Hospitalist Physical - Physical exam Narrative exam: VITAL SIGNS: Reviewed. GENERAL: The patient upset and belligerent vital signs as documented. HEAD: No signs of head trauma. EYES: Pupils are equal. Extraocular motions intact. EARS: Hearing grossly intact. MOUTH: Oropharynx is normal. NECK: No adenopathy, no JVD. CHEST: Chest with clear breath sounds bilaterally. No wheezes, rales, or rhonchi. CARDIAC: Regular rate and rhythm. S1 and S2, without murmurs, gallops, or rubs. VASCULAR: No Edema. Peripheral pulses normal and equal in all extremities. ABDOMEN: Soft, without detectable tenderness. No sign of distention. No rebound or guarding, and no masses palpated. Bowel Sounds normal. MUSCULOSKELETAL: Good range of motion of all major joints. Extremities without clubbing, cyanosis or edema. NEUROLOGIC EXAM: Awake alert and oriented 3 ataxic gait. Require support to ambulate. PSYCHIATRIC: unable to assess SKIN: No rash or lesions. - Constitutional Vitals: Temp Pulse Resp BP Pulse Ox 97.7 F 86 20 187/103 99 12/23/17 06:55 12/23/17 06:55 12/23/17 06:55 12/23/17 06:55 12/23/17 06:55 General appearance: Present: no acute distress, well-nourished Results - Labs CBC & Chem 7: 12/23/17 05:43 12/23/17 05:43 Labs: Laboratory Last Values WBC 13.8 K/mm3 (4.5-11.0) H 12/23/17 05:43 RBC 2.78 M/mm3 (3.65-5.03) L 12/23/17 05:43 Hgb 8.5 gm/dl (11.8-15.2) L 12/23/17 05:43 Hct 25.0 % (35.5-45.6) L 12/23/17 05:43 MCV 90 fl (84-94) 12/23/17 05:43 MCH 31 pg (28-32) 12/23/17 05:43 MCHC 34 % (32-34) 12/23/17 05:43 RDW 14.5 % (13.2-15.2) 12/23/17 05:43 Plt Count 299 K/mm3 (140-440) 12/23/17 05:43 Lymph % (Auto) 8.0 % (13.4-35.0) L 12/23/17 05:43 [place] % (Auto) 6.4 % (0.0-7.3) 12/23/17 05:43 Eos % (Auto) 0.2 % (0.0-4.3) 12/23/17 05:43 Baso % (Auto) 0.2 % (0.0-1.8) 12/23/17 05:43 Lymph # 1.1 K/mm3 (1.2-5.4) L 12/23/17 05:43 [place] # 0.9 K/mm3 (0.0-0.8) H 12/23/17 05:43 Eos # 0.0 K/mm3 (0.0-0.4) 12/23/17 05:43 Baso # 0.0 K/mm3 (0.0-0.1) 12/23/17 05:43 Seg Neutrophils % 85.2 % (40.0-70.0) H 12/23/17 05:43 Seg Neutrophils # 11.8 K/mm3 (1.8-7.7) H 12/23/17 05:43 POC ABG pH 7.472 (7.35-7.45) H 12/22/17 14:31 POC ABG pCO2 26.3 (35-45) L 12/22/17 14:31 POC ABG pO2 77 (80-105) L 12/22/17 14:31 POC ABG HCO3 19.2 12/22/17 14:31 POC ABG Total CO2 20 12/22/17 14:31 POC ABG O2 Sat 96 12/22/17 14:31 POC ABG Base Excess -4 12/22/17 14:31 FiO2 21 % 12/22/17 14:31 Sodium 131 mmol/L (137-145) L 12/23/17 05:43 Potassium 5.0 mmol/L (3.6-5.0) 12/23/17 05:43 Chloride 89.8 mmol/L (98-107) L 12/23/17 05:43 Carbon Dioxide 19 mmol/L (22-30) L 12/23/17 05:43 Anion Gap 27 mmol/L 12/23/17 05:43 BUN 110 mg/dL (9-20) H 12/23/17 05:43 Creatinine 13.4 mg/dL (0.8-1.5) H 12/23/17 05:43 Estimated GFR 5 ml/min 12/23/17 05:43 BUN/Creatinine Ratio 8 % 12/23/17 05:43 Glucose 95 mg/dL (75-100) 12/23/17 05:43 POC Glucose 127 (70-105) H 12/22/17 08:30 Lactic Acid 1.20 mmol/L (0.7-2.0) 12/19/17 13:10 Calcium 7.1 mg/dL (8.4-10.2) L 12/23/17 05:43 Phosphorus 8.20 mg/dL (2.5-4.5) H 12/23/17 05:43 Magnesium 2.30 mg/dL (1.7-2.3) 12/23/17 05:43 Total Bilirubin 0.20 mg/dL (0.1-1.2) 12/23/17 05:43 AST 13 units/L (5-40) 12/23/17 05:43 ALT 12 units/L (7-56) 12/23/17 05:43 Alkaline Phosphatase 53 units/L (35-129) 12/23/17 05:43 Total Creatine Kinase 62 units/L (55-170) 12/22/17 21:31 CK-MB (CK-2) 2.0 ng/mL (0.0-4.0) 12/22/17 21:31 CK-MB (CK-2) Rel Index 3.2 (0-4) 12/22/17 21:31 Troponin T 0.162 ng/mL (0.00-0.029) H* 12/22/17 21:31 Total Protein 5.5 g/dL (6.3-8.2) L 12/23/17 05:43 Albumin 2.6 g/dL (3.9-5) L 12/23/17 05:43 Albumin/Globulin Ratio 0.9 % 12/23/17 05:43 Triglycerides 121 mg/dL (2-149) 12/22/17 14:02 Cholesterol 127 mg/dL (50-199) 12/22/17 14:02 LDL Cholesterol Direct 68 mg/dL (50-130) 12/22/17 14:02 HDL Cholesterol 35 mg/dL (40-59) L 12/22/17 14:02 Cholesterol/HDL Ratio 3.62 % 12/22/17 14:02 Amylase 97 units/L (27-131) 12/19/17 08:41 Lipase 22 units/L (13-60) 12/19/17 08:41 Urine Color Yellow (Yellow) 12/19/17 09:28 Urine Turbidity Clear (Clear) 12/19/17 09:28 Urine pH 6.0 (5.0-7.0) 12/19/17 09:28 Ur Specific [place] 1.013 (1.003-1.030) 12/19/17 09:28 Urine Protein 100 mg/dl mg/dL (Negative) 12/19/17 09:28 Urine Glucose (UA) 50 mg/dL (Negative) 12/19/17 09:28 Urine Ketones Neg mg/dL (Negative) 12/19/17 09:28 Urine Blood Sm (Negative) 12/19/17 09:28 Urine Nitrite Neg (Negative) 12/19/17 09:28 Urine Bilirubin Neg (Negative) 12/19/17 09:28 Urine Urobilinogen 2.0 mg/dL (<2.0) 12/19/17 09:28 Ur Leukocyte Esterase Neg (Negative) 12/19/17 09:28 Urine WBC (Auto) 1.0 /HPF (0.0-6.0) 12/19/17 09:28 Urine RBC (Auto) 1.0 /HPF (0.0-6.0) 12/19/17 09:28 Fluid Type Peritoneal 12/19/17 Unknown Fluid Color Yellow 12/19/17 Unknown Fluid Appearance Cloudy 12/19/17 Unknown Fluid WBC 09778 /mm3 12/19/17 Unknown Fluid RBC 450 /mm3 12/19/17 Unknown Fluid Seg Neutrophils 74.0 % 12/19/17 Unknown Fluid Lymphocytes 20.0 % 12/19/17 Unknown Fluid Reactive Lymphs 0 % 12/19/17 Unknown Fluid Monocytes 2.0 % 12/19/17 Unknown Fluid Eosinophils 4.0 % 12/19/17 Unknown Fluid Basophils 0 % 12/19/17 Unknown Random Vancomycin 18.7 ug/mL (0-40.0) 12/21/17 08:34
[2017-12-23] MEDS: DIANEAL LOW CALCIUM W/1.5% DEXTROSE IP SCH ×2 (09:23→09:24)
[2017-12-23] MEDS ORDERED: CATAPRES-TTS PATCH TD SCH (10:00)
[2017-12-23] MEDS ORDERED: CATAPRES PO SCH (10:00)
[2017-12-23] MEDS ORDERED: ROCALTROL PO SCH (10:00)
--- NOTE | 2017-12-23 10:03 | Consultation ---
History of Present Illness History of present illness: went over the MRI and there are multiple small frontal deep white matter ischemic infarcts medical therapy recommended consider short term rehab will review prior hx Past History Past Medical History: ESRD, hypertension Past Surgical History: Other (peritoneal dialysis) Social history: lives with family, full code. denies: smoking, alcohol abuse Family history: hypertension Medications and Allergies Allergies Allergy/AdvReac Type Severity Reaction Status Date / Time No Known Allergies Allergy Unverified 12/19/17 07:20 Home Medications Medication Instructions Recorded Confirmed Last Taken Type Clonidine HCl [Catapres] 0.3 mg PO TID 12/19/17 12/19/17 12/19/17 History Cyclobenzaprine [Flexeril 10 MG 1 tab PO BID PRN 12/19/17 12/19/17 12/19/17 History TAB] Doxazosin Mesylate 8 mg PO HS 12/19/17 12/19/17 12/19/17 History Furosemide [Lasix] 1 tab PO DAILY 12/19/17 12/19/17 12/19/17 History Losartan [Cozaar] 100 mg PO QDAY 12/19/17 12/19/17 12/19/17 History Active Meds: Active Medications Al Hydrox/Mg Hydrox/Simethicone (Alum-Mag Hydrox-Simeth 743-094-29re/5ml) 30 ml PO DAILY PRN PRN Reason: Indigestion Last Admin: 12/21/17 18:44 Dose: 30 ml Alprazolam (Xanax) 0.25 mg PO TID PRN PRN Reason: Anxiety Last Admin: 12/23/17 00:52 Dose: 0.25 mg Aspirin (Aspirin) 325 mg PO QDAY [facility] Last Admin: 12/22/17 15:29 Dose: Not Given Aspirin (Aspirin) 300 mg [place] QDAY [facility] Last Admin: 12/22/17 13:46 Dose: 300 mg Calcitriol (Rocaltrol) 0.25 mcg PO QDAY [facility] Clonidine HCl (Catapres) 0.2 mg PO TID [facility] Clonidine HCl (Catapres-Tts Patch) 0.2 mg TD Mo [facility] Cyclobenzaprine HCl (Flexeril) 10 mg PO BID PRN PRN Reason: back pain Famotidine (Pepcid) 10 mg PO BID [facility] Last Admin: 12/23/17 00:12 Dose: 10 mg Hydralazine HCl (Apresoline) 10 mg IV Q4HR PRN PRN Reason: Hypertension Last Admin: 12/23/17 06:54 Dose: 10 mg Hydromorphone HCl (Dilaudid) 0.5 mg IV Q8H PRN PRN Reason: Pain , Severe (7-10) Last Admin: 12/20/17 00:55 Dose: 0.5 mg Sodium Chloride (Nacl 0.9% 1000 Ml) 1,000 mls @ 60 mls/hr IV DIRECT [facility] Ondansetron HCl (Zofran) 4 mg IV Q8H PRN PRN Reason: Nausea And Vomiting Last Admin: 12/20/17 20:40 Dose: 4 mg Oxycodone/Acetaminophen (Percocet 5/325) 2 tab PO Q6H PRN PRN Reason: Pain, Moderate (4-6) Last Admin: 12/21/17 13:20 Dose: 2 tab Peritoneal Dialysis Solution (Dianeal Low Calcium W/1.5% Dextrose) 2,000 ml IP 4XD [facility] Last Admin: 12/23/17 09:24 Dose: Not Given Polyethylene Glycol (Miralax 3350) 17 gm PO QDAY PRN PRN Reason: Constipation Last Admin: 12/19/17 16:07 Dose: 17 gm Pravastatin Sodium (Pravachol) 40 mg PO QHS [facility] Last Admin: 12/23/17 00:12 Dose: 40 mg Vancomycin HCl (Vancomycin Pharmacy To Dose) 1 each IV PKCONSULT [facility] PRN Reason: Protocol Physical Examination - Vital Signs Vital Signs: Vital Signs Temp Pulse Resp BP Pulse Ox 98.3 F 100 H 16 266/165 99 12/19/17 07:20 12/19/17 07:20 12/19/17 07:20 12/19/17 07:20 12/19/17 07:20 Results - Laboratory Findings CBC and BMP: 12/23/17 05:43 12/23/17 05:43 Abnormal Lab Findings: Abnormal Labs 12/19/17 12/19/17 12/19/17 07:28 07:28 08:41 WBC RBC 3.25 L Hgb 10.0 L Hct 29.1 L MCHC Plt Count 135 L Lymph % (Auto) 10.8 L [place] % (Auto) 8.2 H Lymph # 0.9 L [place] # Seg Neutrophils % 80.3 H Seg Neutrophils # POC ABG pH POC ABG pCO2 POC ABG pO2 Sodium Chloride 96.4 L 96.3 L Carbon Dioxide 21 L 21 L BUN 101 H 99 H Creatinine 12.0 H 12.0 H Glucose 152 H 152 H POC Glucose Calcium 8.1 L 7.6 L Phosphorus Troponin T Total Protein 5.8 L Albumin 3.7 L 3.6 L HDL Cholesterol 12/19/17 12/20/17 12/20/17 23:42 03:58 03:58 WBC RBC 3.20 L Hgb 9.9 L Hct 28.6 L MCHC 35 H Plt Count Lymph % (Auto) 7.4 L [place] % (Auto) Lymph # 0.6 L [place] # Seg Neutrophils % 86.0 H Seg Neutrophils # POC ABG pH POC ABG pCO2 POC ABG pO2 Sodium 136 L Chloride 92.1 L Carbon Dioxide BUN 96 H Creatinine 11.8 H Glucose 174 H POC Glucose 138 H Calcium 7.6 L Phosphorus Troponin T Total Protein Albumin HDL Cholesterol 12/20/17 12/21/17 12/21/17 23:47 05:54 12:02 WBC RBC Hgb Hct MCHC Plt Count Lymph % (Auto) [place] % (Auto) Lymph # [place] # Seg Neutrophils % Seg Neutrophils # POC ABG pH POC ABG pCO2 POC ABG pO2 Sodium Chloride Carbon Dioxide BUN Creatinine Glucose POC Glucose 173 H 138 H 149 H Calcium Phosphorus Troponin T Total Protein Albumin HDL Cholesterol 12/22/17 12/22/17 12/22/17 01:07 08:30 14:02 WBC RBC Hgb Hct MCHC Plt Count Lymph % (Auto) [place] % (Auto) Lymph # [place] # Seg Neutrophils % Seg Neutrophils # POC ABG pH POC ABG pCO2 POC ABG pO2 Sodium Chloride Carbon Dioxide BUN Creatinine Glucose POC Glucose 177 H 127 H Calcium Phosphorus Troponin T 0.154 H* Total Protein Albumin HDL Cholesterol 35 L 12/22/17 12/22/17 12/23/17 14:31 21:31 05:43 WBC 13.8 H RBC 2.78 L Hgb 8.5 L Hct 25.0 L MCHC Plt Count Lymph % (Auto) 8.0 L [place] % (Auto) Lymph # 1.1 L [place] # 0.9 H Seg Neutrophils % 85.2 H Seg Neutrophils # 11.8 H POC ABG pH 7.472 H POC ABG pCO2 26.3 L POC ABG pO2 77 L Sodium Chloride Carbon Dioxide BUN Creatinine Glucose POC Glucose Calcium Phosphorus Troponin T 0.162 H* Total Protein Albumin HDL Cholesterol 12/23/17 05:43 WBC RBC Hgb Hct MCHC Plt Count Lymph % (Auto) [place] % (Auto) Lymph # [place] # Seg Neutrophils % Seg Neutrophils # POC ABG pH POC ABG pCO2 POC ABG pO2 Sodium 131 L Chloride 89.8 L Carbon Dioxide 19 L BUN 110 H Creatinine 13.4 H Glucose POC Glucose Calcium 7.1 L Phosphorus 8.20 H Troponin T Total Protein 5.5 L Albumin 2.6 L HDL Cholesterol
--- NOTE | 2017-12-23 10:13 | Progress Note ---
Assessment and Plan 1. Altered mental status: Mostly improved. Neuro rec noted. Cardiology consult and Echo are pending. 2. Peritonitis: MRSA peritonitis. Continue Vancomycin. ID consulted. 3. ESRD: Continue PD with 1.5% solution 4 times a day, manual exchanges. Monitor lytes. 4. Uncontrolled HTN: On Clonidine patch. Will avoid Clonidine pill. Start on Labetaolol. Monitor BP. 5. Anemia: Monitor. Patient refusing treatment, meds and PT. Compliance encouraged. D/w his mother in length at the bedside. Also gave the option of transferring to other facility, but refused. Subjective Date of service: 12/23/17 Principal diagnosis: Hypertensive emergency; ESRD on PD; Chest Pain Interval history: Patient was initially seen walking in the hallway with his mother, trying to leave AMA. Subsequently he was seen and examined at the bedside. Objective - Vital Signs Vital signs: Vital Signs - 12hr 12/22/17 12/23/17 12/23/17 23:58 00:00 06:54 Temperature 98.2 F Pulse Rate 92 H Respiratory 18 Rate Respiratory 18 Rate [Abdomen] Blood Pressure 202/89 187/103 O2 Sat by Pulse Oximetry 12/23/17 06:55 Temperature 97.7 F Pulse Rate 86 Respiratory 20 Rate Respiratory Rate [Abdomen] Blood Pressure 187/103 O2 Sat by Pulse 99 Oximetry - General Appearance General appearance: well-developed, appears stated age, other (no distress, exam is limited since he is not cooperating) EENT: ATNC, PERRL, hearing intact Neck: supple Respiratory: Present: Clear to Ascultation Cardiology: S1S2 Integumentary: no rash Neurologic: alert and oriented x3, other (left eyelid droop noted, able to walk , ) Musculoskeletal: other (no edema) Psychiatric: other (patient is combative and yelling) - Lab 12/23/17 05:43 12/23/17 05:43 Most recent lab results Calcium 7.1 mg/dL (8.4-10.2) L 12/23/17 05:43 Phosphorus 8.20 mg/dL (2.5-4.5) H 12/23/17 05:43 Magnesium 2.30 mg/dL (1.7-2.3) 12/23/17 05:43
[2017-12-23] MEDS: ASPIRIN PO SCH (10:28)
--- NOTE | 2017-12-23 10:53 | Progress Note ---
Assessment and Plan Hypertensive emergency. End-stage renal disease, on peritoneal dialysis. Chest pain, atypical. Anemia. - continue to adjust oral anti-hypertensives - continue PD per nephrology recs - aspiration precautions - prn bronchodilators - GI & VTE prophylaxis ...will see prn Subjective Date of service: 12/23/17 Principal diagnosis: Hypertensive emergency; ESRD on PD; Chest Pain Interval history: Patient seen today for: Hypertensive emergency; ESRD on PD; Chest Pain Seen and examined at bedside; 24 hour events reviewed; nursing and respiratory care staff consulted; no adverse overnight events reported to me; resting peacefully; off IV labetolol drip; denies acute chest pains or increased SOB Objective Vital Signs - 12hr 12/22/17 12/23/17 12/23/17 23:58 00:00 06:54 Temperature 98.2 F Pulse Rate 92 H Respiratory 18 Rate Respiratory 18 Rate [Abdomen] Blood Pressure 202/89 187/103 O2 Sat by Pulse Oximetry 12/23/17 06:55 Temperature 97.7 F Pulse Rate 86 Respiratory 20 Rate Respiratory Rate [Abdomen] Blood Pressure 187/103 O2 Sat by Pulse 99 Oximetry Constitutional: no acute distress, alert Eyes: non-icteric ENT: oropharynx moist Neck: supple, no lymphadenopathy Effort: mildly labored Ascultation: Bilateral: rhonchi Percussion: Bilateral: not dull Gastrointestinal: normoactive bowel sounds, soft, non-tender, non-distended Integumentary: normal Extremities: no cyanosis, no edema, pulses normal, no ischemia or petechiae Neurologic: normal mental status, non-focal exam, pupils equal and round, motor strength normal and Psychiatric: mood appropriate, affect normal CBC and BMP: 12/23/17 05:43 12/23/17 05:43 ABG, PT/INR, D-dimer: ABG POC ABG pH 7.472 (7.35-7.45) H 12/22/17 14:31 POC ABG pCO2 26.3 (35-45) L 12/22/17 14:31 POC ABG pO2 77 (80-105) L 12/22/17 14:31 POC ABG HCO3 19.2 12/22/17 14:31 POC ABG Total CO2 20 12/22/17 14:31 POC ABG O2 Sat 96 12/22/17 14:31 Abnormal lab findings: Abnormal Labs 12/19/17 12/19/17 12/19/17 07:28 07:28 08:41 WBC RBC 3.25 L Hgb 10.0 L Hct 29.1 L MCHC Plt Count 135 L Lymph % (Auto) 10.8 L [place] % (Auto) 8.2 H Lymph # 0.9 L [place] # Seg Neutrophils % 80.3 H Seg Neutrophils # POC ABG pH POC ABG pCO2 POC ABG pO2 Sodium Chloride 96.4 L 96.3 L Carbon Dioxide 21 L 21 L BUN 101 H 99 H Creatinine 12.0 H 12.0 H Glucose 152 H 152 H POC Glucose Calcium 8.1 L 7.6 L Phosphorus Troponin T Total Protein 5.8 L Albumin 3.7 L 3.6 L HDL Cholesterol 12/19/17 12/20/17 12/20/17 23:42 03:58 03:58 WBC RBC 3.20 L Hgb 9.9 L Hct 28.6 L MCHC 35 H Plt Count Lymph % (Auto) 7.4 L [place] % (Auto) Lymph # 0.6 L [place] # Seg Neutrophils % 86.0 H Seg Neutrophils # POC ABG pH POC ABG pCO2 POC ABG pO2 Sodium 136 L Chloride 92.1 L Carbon Dioxide BUN 96 H Creatinine 11.8 H Glucose 174 H POC Glucose 138 H Calcium 7.6 L Phosphorus Troponin T Total Protein Albumin HDL Cholesterol 12/20/17 12/21/17 12/21/17 23:47 05:54 12:02 WBC RBC Hgb Hct MCHC Plt Count Lymph % (Auto) [place] % (Auto) Lymph # [place] # Seg Neutrophils % Seg Neutrophils # POC ABG pH POC ABG pCO2 POC ABG pO2 Sodium Chloride Carbon Dioxide BUN Creatinine Glucose POC Glucose 173 H 138 H 149 H Calcium Phosphorus Troponin T Total Protein Albumin HDL Cholesterol 12/22/17 12/22/17 12/22/17 01:07 08:30 14:02 WBC RBC Hgb Hct MCHC Plt Count Lymph % (Auto) [place] % (Auto) Lymph # [place] # Seg Neutrophils % Seg Neutrophils # POC ABG pH POC ABG pCO2 POC ABG pO2 Sodium Chloride Carbon Dioxide BUN Creatinine Glucose POC Glucose 177 H 127 H Calcium Phosphorus Troponin T 0.154 H* Total Protein Albumin HDL Cholesterol 35 L 12/22/17 12/22/17 12/23/17 14:31 21:31 05:43 WBC 13.8 H RBC 2.78 L Hgb 8.5 L Hct 25.0 L MCHC Plt Count Lymph % (Auto) 8.0 L [place] % (Auto) Lymph # 1.1 L [place] # 0.9 H Seg Neutrophils % 85.2 H Seg Neutrophils # 11.8 H POC ABG pH 7.472 H POC ABG pCO2 26.3 L POC ABG pO2 77 L Sodium Chloride Carbon Dioxide BUN Creatinine Glucose POC Glucose Calcium Phosphorus Troponin T 0.162 H* Total Protein Albumin HDL Cholesterol 12/23/17 05:43 WBC RBC Hgb Hct MCHC Plt Count Lymph % (Auto) [place] % (Auto) Lymph # [place] # Seg Neutrophils % Seg Neutrophils # POC ABG pH POC ABG pCO2 POC ABG pO2 Sodium 131 L Chloride 89.8 L Carbon Dioxide 19 L BUN 110 H Creatinine 13.4 H Glucose POC Glucose Calcium 7.1 L Phosphorus 8.20 H Troponin T Total Protein 5.5 L Albumin 2.6 L HDL Cholesterol Allied health notes reviewed: nursing
[2017-12-23] MEDS: ASPIRIN PR SCH (11:11)
[2017-12-23] MEDS ORDERED: NORMODYNE PO SCH (12:00)
--- NOTE | 2017-12-23 12:01 | Discharge Summary ---
Providers - Providers Date of Admission: 12/19/17 09:54 Attending physician: JAMEE TELLO MD 12/20/17 10:59 Consult to Physician [CONS] Routine Consulting Provider: NEHEMIAS MARTINEZ Reason For Exam: ESRD/PD ,peritonitis Place consult to:: Dr. Martinez Notified:: yes Comment:: already seen patient 12/20/17 11:31 Consult to Physician [CONS] Routine Consulting Provider: CYNDEE NUR Reason For Exam: Panic attacks, Anxiety causing the BP to stay high Place consult to:: psych Notified:: yes Phone number called:: [phone] If yes, spoke with:: Bina Comment:: "Nur will return Saturday" 12/20/17 13:24 Consult to Physician [CONS] Routine Consulting Provider: EMERALD HELLER Reason For Exam: Critical Care Admit Place consult to:: dr Parks Notified:: yes 12/22/17 07:52 Consult to Physician [CONS] Routine Consulting Provider: LILIAN GREEN Reason For Exam: peritonitis Place consult to:: dr. green Notified:: lft ms Phone number called:: Was contact made?: No Time called:: 10:09 12/22/17 12:32 Consult to Physician [CONS] Stat Consulting Provider: BOBBI ARELLANO Reason For Exam: stroke Place consult to:: dr arellano Notified:: answering service Phone number called:: [phone] Was contact made?: Yes If yes, spoke with:: pamela Time called:: 12:35 12/22/17 12:38 Physical Therapy Evaluation and Treat [CONS] Routine Comment: Reason For Exam: stroke 12/22/17 12:39 Occupational Therapy Evaluate and Treat [CONS] Routine Comment: Reason For Exam: stroke 12/22/17 12:40 Speech Therapy Evaluation and Treat [CONS] Routine Reason For Exam: stroke 12/22/17 13:13 Consult to Physician [CONS] Routine Consulting Provider: ISD MARINO Reason For Exam: ST changes Place consult to:: Xenia Notified:: Phone number called:: [phone] Was contact made?: Yes If yes, spoke with:: Dr. Marino Time called:: 13:25 Comment:: Dr. Marino will see pt. tomorrow EKG results given 12/23/17 09:17 Consult to Mental Health [CONS] Routine Reason For Exam: [facility] Place consult to:: mental health Notified:: QUINN Phone number called:: [phone] Was contact made?: Yes Time called:: 09:21 Consult to Physician [CONS] Routine Consulting Provider: MARYLOU MEJIA Reason For Exam: [facility] Place consult to:: PSYCH Notified:: QUINN Phone number called:: [phone] Was contact made?: Yes Time called:: 09:23 Primary care physician: NEHEMIAS MARTINEZ Hospitalization Reason for admission: hypertensive emergency Condition: Stable Hospital course: 47-year-old -[place] male patient with significant past medical history of hypertension and anxiety disorder end-stage renal disease on peritoneal dialysis, anemia secondary to end-stage renal disease, presented to the emergency room with abdominal pain off to discharge patient., Patient has not been feeling well, not been able to tolerate any by mouth intake. Denies any fever, evaluated by record keeper was noted to have hypertensive emergency with systolic blood pressure and 200 was admitted on labetalol drip to the ICU and subsequently transferred to the medical floor steroids and by mouth intake. Patient was initially treated as noted above and then the next few days he was noted the day prior to him leaving to be altered imaging studies were obtained which showed multifocal CVA. He was placed on telemetry. He did have some abnormal EKGs which were present on admission cardiology was consulted but the patient left AGAINST MEDICAL ADVICE prior to cardiology evaluation. Discussed extensively with the patient and also with the mother also with a spouse and record keeper. Patient is alert awake oriented x3 and signed out AGAINST MEDICAL ADVICE he understands that he has severe peritonitis and needs to be on antibiotics. I discussed with nephrology who states that they will be able to give him vancomycin during dialysis but would require him to come to hemodialysis. I will proceed and right and aspirin and statin medication outpatient. I have advised family that patient still needs extensive workup. The reports to me that the patient's blood pressures normally stays high in the 180s and every time he gets upset shoots up to above 200 and the patient is very noncompliant with medications outpatient. She unfortunately cannot control him I'll have him stay in the hospital. The son came and took the patient home. The mother initially refused me speaking to the states that the is not his admitted that noted an . I repeatedly asked the family the patient has any prior psychiatric illnesses for which they declined. Advised the about his clinical condition and also advised the mother and also advised him about medications called in. Multifocal CVA Non-ST elevated OR possible type II Acute metabolic Encephalopathy Hypertensive emergency. End-stage renal disease, on peritoneal dialysis. Severe peritonitis with MRSA Anemia of chronic kidney disease. Type 2 OR Disposition: DC-07 LEFT AGAINST MED ADVICE Time spent for discharge: 35 mins Core Measure Documentation - Palliative Care Palliative Care/ Comfort Measures: Not Applicable - Core Measures Any of the following diagnoses?: stroke - VTE Discharge Requirements Deep Vein Thrombosis/Pulmonary Embolism Present on Admission: No - Stroke Discharge Requirements Statin for LDL = or >70 mg/dl on DC: Yes Anticoag for atrial fib/atrial flutter: Not Applicable Antithrombotic for ischemic stroke: Yes Exam - Physical Exam Narrative exam: VITAL SIGNS: Reviewed. GENERAL: The patient upset and belligerent vital signs as documented. HEAD: No signs of head trauma. EYES: Pupils are equal. Extraocular motions intact. EARS: Hearing grossly intact. MOUTH: Oropharynx is normal. NECK: No adenopathy, no JVD. CHEST: Chest with clear breath sounds bilaterally. No wheezes, rales, or rhonchi. CARDIAC: Regular rate and rhythm. S1 and S2, without murmurs, gallops, or rubs. VASCULAR: No Edema. Peripheral pulses normal and equal in all extremities. ABDOMEN: Soft, without detectable tenderness. No sign of distention. No rebound or guarding, and no masses palpated. Bowel Sounds normal. MUSCULOSKELETAL: Good range of motion of all major joints. Extremities without clubbing, cyanosis or edema. NEUROLOGIC EXAM: Awake alert and oriented 3 ataxic gait. Require support to ambulate. PSYCHIATRIC: unable to assess SKIN: No rash or lesions. - Constitutional Vitals: Temp Pulse Resp BP Pulse Ox 97.7 F 93 H 20 187/103 99 12/23/17 06:55 12/23/17 11:01 12/23/17 06:55 12/23/17 06:55 12/23/17 06:55 Plan Follow up with: NEHEMIAS MARTINEZ MD [Primary Care Provider] - 7 Days Forms: AMA Form Prescriptions: Pravastatin [Pravachol] 40 mg PO QHS #30 tablet Aspirin [Aspirin TAB] 325 mg PO QDAY #30 tablet Clonidine HCl [Catapres] 0.3 mg PO TID #90 tablet Labetalol [Normodyne TAB] 200 mg PO BID #30 tablet Losartan [Cozaar] 100 mg PO QDAY #30 tablet
--- NOTE | 2017-12-24 15:52 | Event Note ---
Date: 12/24/17 Talked to the patient and his mother over the phone and explained that he need to be admitted as inpatient [facility] for further treatment of his peritonitis, Stroke and other medical conditions. He decided to go the ER tomorrow.
== END 2017-12-23 11:30 | disposition left against medical advice (07) | DRG 371 ==
LOC: ED 06:39 → 3A 09:54 → CC1 21:37 → 3A 12-21 12:49 → 4A 12-22 16:00
PROVIDERS: ADMIT Internal Medicine; ATTEND Internal Medicine
PROC: 4A033R1 Measurement of Arterial Saturation, Peripheral, Percutaneous Approach (ICD-10-PCS; principal; 2017-12-22)
DX: K65.9 Peritonitis, unspecified (principal); N18.6 End stage renal disease; I21.A1 Myocardial infarction type 2; I63.8 Other cerebral infarction; G93.41 Metabolic encephalopathy; I12.0 Hypertensive chronic kidney disease with stage 5 chronic kidney disease or end stage renal disease; I16.1 Hypertensive emergency; N25.81 Secondary hyperparathyroidism of renal origin; F41.9 Anxiety disorder, unspecified; D63.1 Anemia in chronic kidney disease; R07.89 Other chest pain; Z79.899 Other long term (current) drug therapy; Z82.49 Family history of ischemic heart disease and other diseases of the circulatory system
CPT/HCPCS: 36415; 36600; 70450; 70551; 71045; 74176; 80048; 80053; 80061; 80202; 81001; 82140; 82150; 82550; 82553; 82803; 82962; 83690; 83735; 84100; 84484; 85025; 86403; 87040; 87116; 87186; 89051; 93005; 93010; 93975; 96374; A9270-GY; J0360; J0696; J1170; J1630; J1644; J2270; J2405; J3370; J7030; J7040; J7050